=== PATIENT | male | born 1985 | race Two or more races ===

== ENCOUNTER → 2019-08-01 | Emergency (ER) | payer MEDICAID ==
[~2019-08-01] VITALS: Ht 160 cm; Wt 72.6 kg
[~2019-08-01] MED LIST: LORazepam 2MG/ML-1ML VIAL IV ONE; SODIUM CHLORIDE 0.9% 1,000 ML IV ONE
[2019-08-01 22:00] LABS: Basophils # (auto) 0 uL; Basophils % (auto) 0.5 % (0.0-2.0); Eosinophils # (auto) 0 uL; Eosinophils % (auto) 0.3 % (0.0-7.0); Hematocrit 41.6 % (41.0-53.0); Hemoglobin 14.2 g/dL (13.5-17.5); Lymphocytes # (auto) 0.8 uL; Lymphocytes % (auto) 8.3 % (10.0-50.0); Mean Corpuscular Hemoglobin 28.2 pg (28.0-32.0); Monocytes # (auto) 0.4 uL; Monocytes % (auto) 4.2 % (0.0-12.0); Neutrophils # (auto) 7.9 uL; Neutrophils % (auto) 86.7 % (37.0-80.0); Nucleated Red Blood Cells % 0.1 %; Platelet Count (auto) 325 10^3/uL (140-450); Red Blood Cells 5.02 10^6/uL (4.5-5.90); Red Cell Distribution Width 14.6 % (11.8-14.3); White Blood Cell 9.2 10^3/uL (4.4-10.8)
[2019-08-01 22:19] LABS: Salicylate < 1.7 mg/dL (2.8-20.0)
[2019-08-01 22:20] LABS: Albumin 4.2 g/dL (3.4-5.0); Anion Gap 9 (5-15); Blood Alcohol < 3.0 mg/dL (0-5); Blood Urea Nitrogen 5 mg/dL (7-18); Calcium 8.2 mg/dL (8.5-10.1); Carbon Dioxide 25 mmol/L (21-32); Chloride 104 mmol/L (98-107); Glucose 104 mg/dL (74-106); Magnesium 2.1 mg/dL (1.6-2.6); Potassium 3.5 mmol/L (3.5-5.1); Sodium 138 mmol/L (136-145)
[2019-08-01 22:21] LABS: Urine Bacteria FEW /hpf (None Seen); Urine Blood Negative /uL (Negative); Urine Specific Gravity 1.005 (1.001-1.035); Urine Sperm PRESENT /hpf (None Seen); Urine WBC 2 /hpf (0 - 3)
[2019-08-01 22:22] LABS: Acetaminophen < 2.0 ug/mL (10-30)
[2019-08-01 22:24] LABS: Alcohol, Urine < 3.0 mg/dL (0-5); Amphetamine Screen, Urine NEGATIVE (NEGATIVE); Barbiturate Scree,Urine NEGATIVE (NEGATIVE); Benzodiazephine Screen, Urine NEGATIVE (NEGATIVE); Cannabinoid Screen, Urine NEGATIVE (NEGATIVE); Cocaine Screen, Urine NEGATIVE (NEGATIVE); Opiate Scree,Urine NEGATIVE (NEGATIVE); Phencyclidine Screen, Urine NEGATIVE (NEGATIVE)
[2019-08-01 22:27] LABS: Alanine Aminotransferase 32 U/L (16-61); Alkaline Phosphatase 139 U/L (45-117); Aspartate Aminotransferase 16 U/L (15-37); BUN/Creatinine Ratio 5.1; Bilirubin, Total 0.3 mg/dL (0.2-1.0); GFR African American 112 mL/min; GFR Non-African American 93 mL/min; Total Protein 8.1 g/dL (6.4-8.2)
[2019-08-01 23:56] VITALS: BP 154/94
== END | disposition home or self-care (01) ==
LOC: ER 21:17
DX: T50.901A Poisoning by unspecified drugs, medicaments and biological substances, accidental (unintentional), initial encounter (principal); F41.9 Anxiety disorder, unspecified; I10 Essential (primary) hypertension; Y92.89 Other specified places as the place of occurrence of the external cause
CPT/HCPCS: 36415; 71045; 80053; 80307; 80320; 80329; 81001; 83735; 84484; 85025; 93005; 96374; 99285; J2060; J7030

== ENCOUNTER 2021-11-10 22:38 | Emergency (ER) | payer MEDICAID ==
[~2021-11-10] VITALS: Ht 160 cm; Wt 72.6 kg
[2021-11-10 22:38] VITALS: BP 148/87
== END 2021-11-11 02:20 | disposition left against medical advice (07) ==
LOC: ER 22:38
DX: S61.214A Laceration without foreign body of right ring finger without damage to nail, initial encounter (principal); Z53.21 Procedure and treatment not carried out due to patient leaving prior to being seen by health care provider; X58.XXXA Exposure to other specified factors, initial encounter; Y93.89 Activity, other specified; Y92.89 Other specified places as the place of occurrence of the external cause; Y99.8 Other external cause status

== ENCOUNTER 2022-04-02 14:52 | Emergency (ER) | payer MEDICAID ==
[~2022-04-02] VITALS: Ht 160 cm; Wt 73.4 kg
[2022-04-02 15:47] LABS: Urine Bacteria NONE SEEN /hpf (None Seen); Urine Blood Negative /uL (Negative); Urine Specific Gravity 1.016 (1.001-1.035); Urine WBC 1 /hpf (0 - 3)
[2022-04-02] MEDS ORDERED: DOXY-332 PO (19:53)
[2022-04-02] MEDS ORDERED: ACE3T PO (19:53)
[2022-04-02 20:10] VITALS: BP 130/91
== END 2022-04-02 20:16 | disposition home or self-care (01) ==
LOC: ER 14:52
DX: N41.9 Inflammatory disease of prostate, unspecified (principal); I10 Essential (primary) hypertension; Z79.899 Other long term (current) drug therapy; Z79.2 Long term (current) use of antibiotics
CPT/HCPCS: 76870; 81001

== ENCOUNTER 2022-08-22 12:52 | Emergency (ER) | payer MEDICAID ==
[~2022-08-22] VITALS: Ht 160 cm; Wt 68.1 kg
[~2022-08-22 12:52] MED LIST changes: +ACE3T PO; +ACET1CAP14 PO; +AZITTAB PO; +BENZ1LOZ3 MT; +DOXY-332 PO; -LORazepam 2MG/ML-1ML VIAL IV ONE; -SODIUM CHLORIDE 0.9% 1,000 ML IV ONE
[2022-08-22 13:42] VITALS: BP 154/93
[2022-08-22] MEDS ORDERED: cefTRIAXone SOD 1,000 MG VL IM ONE (14:00)
[2022-08-22] MEDS ORDERED: LIDO2SOL23 MT (14:02)
== END 2022-08-22 14:18 | disposition home or self-care (01) ==
LOC: ER 12:52
DX: J02.9 Acute pharyngitis, unspecified (principal); I10 Essential (primary) hypertension; Z88.6 Allergy status to analgesic agent; Z88.1 Allergy status to other antibiotic agents
CPT/HCPCS: 96372; 99283; J0696

== ENCOUNTER 2023-04-30 18:11 | Emergency (ER) | payer MEDICAID ==
[~2023-04-30 18:11] MED LIST changes: +BENZ1LOZ12 MT; -BENZ1LOZ3 MT; -DOXY-332 PO; +DOXY-448 PO; +LIDO2SOL26 MT
== END 2023-04-30 18:33 | disposition left against medical advice (07) ==
LOC: ER 18:11
DX: N48.89 Other specified disorders of penis (principal); Z53.21 Procedure and treatment not carried out due to patient leaving prior to being seen by health care provider

== ENCOUNTER 2024-10-14 19:40 | Emergency (ER) | payer MEDICAID ==
[~2024-10-14] VITALS: Ht 160 cm; Wt 67.4 kg
[~2024-10-14 19:40] MED LIST changes: -BENZ1LOZ12 MT; +BENZ1LOZ3 MT; -DOXY-448 PO; +DOXY100C79 PO
--- NOTE | 2024-10-14 19:55 | ED.PDOC ---
SOB-HPI HPI Comments 39 year old male presents to the ED with a chief complaint of shortness of breath onset 2 weeks. Patient states he has been experiencing intermittent shortness of breath for the past 2 weeks as well as chest tightness. Patient rates chest discomfort 3/10 and states he is also experiencing ear ringing, blood after blowing his nose. PMHx bipolar disorder, anxiety, HTN. Denies fever, chills, abdominal pain, nausea, vomiting, diarrhea, headache, dizziness. No other symptoms or modifying factors present at this time. Time Seen by MD: 20:05 Primary Care Provider: MERCEDEZ Reviewed notes: Medications, Allergies Information Source: Patient Mode of Arrival: Ambulatory Severity: Moderate Timing: Weeks Duration: Intermittent Context: At Rest PE Risk Factors: None History of: Anxiety Prehospital treatment: None Modifying Factors: Nothing Associated Signs and Symptoms: Chest Pain, Anxiety Quality: Tightness Radiation: No Radiation Location: Chest (L) Vital Signs Vital Signs Date Time Temp Pulse Resp B/P (MAP) Pulse Ox O2 Delivery O2 Flow Rate FiO2 10/14/24 21:53 99.4 111 12 151/97 (115) 98 99.4 10/14/24 21:53 Room Air* 0 21 Physical Exam General: Awake, alert and oriented. No acute distress. Skin: Skin in warm, dry and intact. Appropriate color for ethnicity. HEENT: The head is normocephalic and atraumatic. Conjunctivae are clear without exudates or hemorrhage. Sclera is non-icteric. EOM are intact. No signs of nystagmus. Eyelids are normal in appearance without swelling or lesions. Oral mucosa is pink and moist. No posterior pharyngeal erythema Neck: The neck is supple with normal range of motion. No JVD. Cardiac: Heart rate and rhythm are normal. No murmurs, gallops, or rubs are auscultated. Respiratory: No signs of respiratory distress. Lung sounds are clear in all lobes bilaterally without rales, rhonchi, or wheezes. Abdominal: Abdomen is soft, non-tender without distention. Bowel sounds are present and normoactive in all four quadrants. Extremities: Upper and lower extremities are atraumatic in appearance without deformity or edema. Neurological: The patient is awake, alert and oriented to person, place, and time with normal speech. Speech is clear. There is no facial asymmetry. Psychiatric: Appropriate mood and affect. Good judgement and insight. Review of Systems: REVIEW OF SYSTEMS: No fever, no chills, or fatigue HEENT: No sore throat, no earache, no congestion, no neck pain. Positive nasal congestion, positive rhinorrhea Cardiac: Positive chest pain. No palpitations. Lungs: Positive shortness of breath, positive cough. GI: No nausea, no vomiting, no diarrhea, no constipation, no abdominal pain : No dysuria, frequency, or urgency. No hematuria. Musculoskeletal: No joint pain , no joint swelling, no extremity edema. Skin: No rash, no itching. Neuro: No headache, no dizziness, no weakness Past Medical History PAST MEDICAL HISTORY: Anxiety, HTN Past Medical History (Other): bipolar disorder Surgical History: Denies all surgeries Family History Family History: Reviewed,noncontributory to illness Social History Smoker: Non-Smoker Alcohol: Denies ETOH Use Drugs: Denies Drug Use Lives In: Home EKG EKG : Pulse Rate (adult): 128 Cardiac Rhythm: ST Comments No STEMI Was a procedure done? Was a procedure done?: No Differential Dx Differential Diagnosis: Anxiety, Asthma, Bronchitis, CHF, COPD, Hypertension, Hyperventilation, Hyponatremia, Myocardial infarction, Pneumonia, Pneumothorax, Pulmonary Embolism, Respiratory Distress, Sinusitis, Otitis Media, Peritonsillar Abscess, Peritonsillar Cellulitis, Pharyngitis, URI X-Ray, Labs, Meds, VS Vital Signs Date Time Temp Pulse Resp B/P (MAP) Pulse Ox O2 Delivery O2 Flow Rate FiO2 10/14/24 21:53 99.4 111 12 151/97 (115) 98 99.4 10/14/24 21:53 Room Air* 0 21 10/14/24 20:24 128 10/14/24 20:11 128 10/14/24 20:04 98.5 115 18 127/89 (102) 98 98.5 Lab Test 10/14/24 22:08 10/14/24 21:32 10/14/24 20:29 Range/Units Influenza Type A Antigen Negative Negative Influenza Type B Antigen Negative Negative SARS-CoV-2 Antigen (Rapid) Negative NEGATIVE Troponin I High Sensitivity 7 6 </=54 ng/L White Blood Count 7.6 4.4-10.8 10^3/uL Red Blood Count 4.99 4.5-5.90 10^6/uL Hemoglobin 14.9 13.5-17.5 g/dL Hematocrit 41.9 41.0-53.0 % Mean Corpuscular Volume 83.9 80.0-100.0 fL Mean Corpuscular Hemoglobin 29.7 28.0-32.0 pg Mean Corpuscular Hemoglobin Concent 35.5 32.0-36.0 g/dL Red Cell Distribution Width 12.2 11.8-14.3 % Platelet Count 235 140-450 10^3/uL Mean Platelet Volume 6.8 L 6.9-10.8 fL Neutrophils (%) (Auto) 73.0 37.0-80.0 % Lymphocytes (%) (Auto) 18.7 10.0-50.0 % Monocytes (%) (Auto) 7.3 0.0-12.0 % Eosinophils (%) (Auto) 0.3 0.0-7.0 % Basophils (%) (Auto) 0.7 0.0-2.0 % Neutrophils # (Auto) 5.6 1.6-8.6 10 ^3/uL Lymphocytes # (Auto) 1.4 0.4-5.4 10 ^3/uL Monocytes # (Auto) 0.6 0-1.3 10 ^3/uL Eosinophils # (Auto) 0 0-0.8 10 ^3/uL Basophils # (Auto) 0 0-0.2 10 ^3/uL Nucleated Red Blood Cells 0.4 % D-Dimer, Quantitative < 0.19 0.0-0.49 mg/L FEU Sodium Level 135 L 136-145 mmol/L Potassium Level 3.6 3.5-5.1 mmol/L Chloride Level 98 98-107 mmol/L Carbon Dioxide Level 22 20-31 mmol/L Anion Gap 15 5-15 Blood Urea Nitrogen 9 9-23 mg/dL Creatinine 0.83 0.700-1.30 mg/dL Glomerular Filtration Rate Calc 114 >90 mL/min BUN/Creatinine Ratio 10.8 10.0-20.0 Serum Glucose 92 74-106 mg/dL Calcium Level 9.5 8.7-10.4 mg/dL Total Bilirubin 0.7 0.2-1.0 mg/dL Aspartate Amino Transferase (AST) 25 13-40 U/L Alanine Aminotransferase (ALT) 45 H 7-40 U/L Alkaline Phosphatase 137 H 46-116 U/L B-Type Natriuretic Peptide 7.72 0-100 pg/mL Total Protein 8.2 5.7-8.2 g/dL Albumin 5.4 H 3.2-4.8 g/dL IMPRESSION: 1. No acute cardiopulmonary disease. ATED BY: JENNIE RICKETTS MD DICTATED DATE/TIME: 10/14/242157 SIGNED BY: JENNIE RICKETTS MD SIGNED DATE/TIME: 10/14/242157 CC: Images Reviewed?: Images reviewed and evaluated by me (Independent interpretation of chest x-ray: No acute disease) Time of 1ST Reevaluation: 20:35 Reevaluation 1ST: Unchanged Patient Education/Counseling: Need For Follow Up Family Education/Counseling: No Family Present Departure 1 Departure Time of Disposition: 23:37 Impression: Primary Impression: Chest tightness Disposition: 01 HOME / SELF CARE / HOMELESS Condition: Other Additional Instructions: ED DISCHARGE INSTRUCTIONS Instructions: Please read all instructions provided in this packet carefully. Although you have been discharged from the Emergency Department, this does not mean that you have a "clean bill of health". No definitive diagnosis for your symptoms has been made today. It is possible that you are in the process of developing a serious illness. This is why you must return to the ED without fail if any new or worsening symptoms (especially if your symptoms include chest pain , trouble breathing, abdominal pain, fever, headache, confusion, trouble seeing, or trouble walking) It is also very important that you see a primary care doctor within the next 3-5 days to follow up. If you are unable to get an appointment, return to the ED for re-evaluation. CHEST PAIN EDUCATION There are many things that can cause chest pain. Some are not serious and will get better on their own in a few days. But some kinds of chest pain need more testing and treatment. Your doctor may have recommended a follow-up visit in the next few days. If you are not getting better, you may need more tests or treatment. Even though your doctor has released you, you still need to watch for any problems. The doctor carefully checked you, but sometimes problems can develop later. If you have new symptoms or if your symptoms do not get better, get medical care right away. If you have worse or different chest pain or pressure that lasts more than 5 minutes or you passed out (lost consciousness), call 911 or seek other emergency help right away. A medical visit is only one step in your treatment. Even if you feel better, you still need to do what your doctor recommends, such as going to all suggested follow-up appointments and taking medicines exactly as directed. This will help you recover and help prevent future problems. How can you care for yourself at home? Rest until you feel better. Take your medicine exactly as prescribed. Call your doctor if you think you are having a problem with your medicine. Do not drive after taking a prescription pain medicine. When should you call for help? Call 911 if: You passed out (lost consciousness). You have severe difficulty breathing. You have symptoms of a heart attack. These may include: Chest pain or pressure, or a strange feeling in your chest. Sweating. Shortness of breath. Nausea or vomiting. Pain, pressure, or a strange feeling in your back, neck, jaw, or upper belly or in one or both shoulders or arms. Lightheadedness or sudden weakness. A fast or irregular heartbeat. After you call 911, the smokehouse operator may tell you to chew 1 adult-strength or 2 to 4 low-dose aspirin. Wait for an ambulance. Do not try to drive yourself. Call your doctor now or seek immediate medical care if: You have any trouble breathing. You have new or different chest pain. You are dizzy or lightheaded, or you feel like you may faint. Watch closely for changes in your health, and be sure to contact your doctor if you do not get better as expected. Current as of: January 08, 2024 Author: [employer] Staff? e-Prescriptions Albuterol Sulfate (VENTOLIN MDI) 90 Mcg Ih 90 MCG IN TIDPRN PRN for 5 Days, #1 INH Prov: LORNA RIVERA MD 10/14/24 Azithromycin (Zithromax Z-Jorge) 250 Mg Tab 250 MG PO DAILY for 5 Days, #6 TAB Prov: LORNA RIVERA MD 10/14/24 Comments 39-year-old male with chest tightness and shortness of breath. Your EKG negative for signs of ischemia. Serial High sensitivity troponin negative. CXR shows no acute process. Presentation not suggestive of acute coronary syndrome, pulmonary embolism or aortic dissection. Patient improved at time of discharge. No hypoxia, respiratory distress or dyspnea at discharge. Patient able to ambulate without difficulty. We will treat for bronchitis. Patient well-appearing, nontoxic. Advised prompt follow-up with PCP, return to the ED with any new, worsening or concerning symptoms. Extensive evaluation was performed in attempt to identify or rule out: (See differential diagnosis section) The following tests were ordered, and results were reviewed by me and discussed with patient: (See diagnostic results section) The following test were independently interpreted by me: EKG, chest x-ray I reviewed and agreed with the following test results read by other providers: Chest x-ray I reviewed the following notes from the pt's past medical encounters: Encounter August 2022 for acute pharyngitis Additional information was gathered from interviewing the following independent historians: N/A Discussion of management or test interpretation with external physician/other qualified health managed care nurse: N/A Decision regarding hospitalization or escalation of hospital level of care: Risks and benefits of admission for further treatment of patient's condition was considered however due to patient's stable condition patient will be discharged to follow up closely or return to care for worsening of condition or inability to follow up. Critical Care Note Critical Care Time?: No Stability Stability form required: No Heart Score Heart Score: Heart Score Response (Comments) Value History Slightly Suspicious 0 EKG Normal 0 Age <45 0 Risk Factors No known risk factors 0 Troponin Normal limit 0 Total 0 I personally scribed for LORNA RIVERA MD ([email or web address]) on 10/14/24 at 19:55. Eliza ctronically submitted by Alix Cisneros ([email or web address]). I personally scribed for LORNA RIVERA MD ([email or web address]) on 10/14/24 at 20:23. Electronically submitted by Alix Cisneros ([email or web address]). I personally scribed for LORNA RIVERA MD ([email or web address]) on 10/14/24 at 20:24. Electronically submitted by Alix Cisneros ([email or web address]). I personally scribed for LORNA RIVERA MD ([email or web address]) on 10/14/24 at 22:05. Electronically submitted by Alix Cisneros ([email or web address]). LORNA RIVERA MD October 14, 2024 19:55
[2024-10-14 20:39] LABS: Basophils # (auto) 0 10 ^3/uL (0-0.2); Basophils % (auto) 0.7 % (0.0-2.0); Eosinophils # (auto) 0 10 ^3/uL (0-0.8); Eosinophils % (auto) 0.3 % (0.0-7.0); Hematocrit 41.9 % (41.0-53.0); Hemoglobin 14.9 g/dL (13.5-17.5); Lymphocytes # (auto) 1.4 10 ^3/uL (0.4-5.4); Lymphocytes % (auto) 18.7 % (10.0-50.0); Mean Corpuscular Hemoglobin 29.7 pg (28.0-32.0); Mean Corpuscular Hgb Conc. 35.5 g/dL (32.0-36.0); Mean Corpuscular Volume 83.9 fL (80.0-100.0); Monocytes # (auto) 0.6 10 ^3/uL (0-1.3); Monocytes % (auto) 7.3 % (0.0-12.0); Neutrophils # (auto) 5.6 10 ^3/uL (1.6-8.6); Nucleated Red Blood Cells % 0.4 %; Platelet Count (auto) 235 10^3/uL (140-450); Red Blood Cells 4.99 10^6/uL (4.5-5.90); Red Cell Distribution Width 12.2 % (11.8-14.3); White Blood Cell 7.6 10^3/uL (4.4-10.8)
[2024-10-14 20:54] LABS: Anion Gap 15 (5-15); Aspartate Aminotransferase 25 U/L (13-40); BUN/Creatinine Ratio 10.8 (10.0-20.0); Bilirubin, Total 0.7 mg/dL (0.2-1.0); Blood Urea Nitrogen 9 mg/dL (9-23); Calcium 9.5 mg/dL (8.7-10.4); Carbon Dioxide 22 mmol/L (20-31); Chloride 98 mmol/L (98-107); Glucose 92 mg/dL (74-106); Potassium 3.6 mmol/L (3.5-5.1); Total Protein 8.2 g/dL (5.7-8.2)
[2024-10-14 20:55] LABS: Alanine Aminotransferase 45 U/L (7-40); Albumin 5.4 g/dL (3.2-4.8); Alkaline Phosphatase 137 U/L (46-116); Sodium 135 mmol/L (136-145)
--- NOTE | 2024-10-14 22:01 | DVH ---
CHEST RADIOGRAPH Indication: cp Technique: Single frontal view of the chest was obtained Comparison: None FINDINGS: Lines and Tubes: None Lungs: No focal consolidation. Pleura: No effusion. No pneumothorax. Cardiomediastinal contours: Unremarkable Bones: No acute osseous abnormality. IMPRESSION: 1. No acute cardiopulmonary disease.
[2024-10-14 23:08] LABS: Rapid Influenza A Negative (Negative); Rapid Influenza B Negative (Negative)
[2024-10-14 23:09] LABS: COVID19 ANTIGEN SOFIA FIA NEGATIVE (NEGATIVE)
[2024-10-14] MEDS ORDERED: AZITTAB PO (23:40)
[2024-10-14] MEDS ORDERED: ALBUAER3 IN (23:40)
[2024-10-15 00:10] VITALS: BP 141/95; PULSE 117; RESP 18; TEMP 98.2; O2SAT 98
[2024-10-15] MEDS: SODIUM CHLORIDE 0.9% 1,000 ML IV ONE (00:12)
--- NOTE | 2024-10-15 08:40 | ECG ---
[facility] Test Date: 2024-10-14 Test Time: 20:11:39 Pat Name: CECE MANZO Department: ER Room: Gender: M Cutter Grinder: LEANDRA : 1985 Requested By: LORNA RIVERA Order Number: [id number] Reading MD: Stanislav Pozo Measurements Intervals [place] Rate: 128 P: 53 AR: 108 QRS: 88 QRSD: 77 T: -31 QT: 287 QTc: 419 Interpretive Statements Sinus tachycardia Borderline T abnormalities, diffuse leads Electronically Signed On 10-15-2024 21:10:47 PDT by Stanislav Pozo Please click the below link to view image of tracing.
== END 2024-10-15 00:12 | disposition home or self-care (01) ==
LOC: ER 19:40
DX: R07.89 Other chest pain (principal); R06.02 Shortness of breath; I10 Essential (primary) hypertension; F41.9 Anxiety disorder, unspecified; F31.9 Bipolar disorder, unspecified; Z20.822 Contact with and (suspected) exposure to COVID-19
CPT/HCPCS: 36415; 71045; 80053; 83880; 84484; 85025; 85379; 87426; 87804; 93005

== ENCOUNTER 2025-04-17 17:12 | Inpatient (IN) | payer MEDICAID ==
[~2025-04-17] VITALS: Ht 160 cm; Wt 72.4 kg
[~2025-04-17 17:12] MED LIST changes: +ALBUAER3 IN
--- NOTE | 2025-04-17 18:28 | ED.PDOC ---
GI ASSESSMENT HPI Comments HPI: Past Medical History: Hypertension Surgical History: Denies Family History: Denies Personal and Social History: Alcohol abuse. Denies any drug use MANZO: N/V EPIG PAIN HEMATEMESIS., ETOH HPI: Poor Historian. 39-year-old male presents to emergency department for evaluation epigastric pain with the associated nausea and vomiting where he noticed some blood in his vomit. Onset yesterday. Patient is started to feel some chest burning sensation as well. Patient has been drinking alcohol binge drinking for the last three weeks. Denies any other acute symptoms. Patient only vomited twice today. REVIEW OF SYSTEMS: CONSTITUTIONAL: Denies acute: fever, diaphoresis, chills, generalized weakness. HEAD: Denies acute: headache, photophobia Eyes: Denies acute: Double vision, vision loss, eye pain, eye discharge. EARS: Denies acute: tinnitus, hearing loss, ear discharge, ear pain, THROAT: Denies acute: sore throat, swelling, difficulty swallowing , pain with swallowing, change in voice. NECK: Denies acute: neck pain, neck swelling, stiff neck. HEART: Denies acute : palpitations, LUNGS: Denies acute: SOB, wheezing, cough, hemoptysis ABDOMEN: Denies acute: diarrhea, melena , , hematochezia SKIN: Denies acute: rash, redness, lesions, itchiness. EXTREMITIES: Denies acute: calf pain, numbness, tingling, weakness, denies pain in extremity. Denies acute: Low back pain. Neuro: Denies acute: focal neurological deficit, motor or sensory focal neurological deficit, tremors, seizure like activity, confusion, dizziness, change in mental status, loss of bowel or bladder function, cauda equina like symptoms. : Denies acute: dysuria, hematuria, flank pain, increase in urinary frequency. PSYCH: Denies acute: hallucination, suicidal ideation, homicidal ideation. PHYSICAL EXAM: General: -----mild---acute distress, awake and alert. Head: normocephalic, atraumatic. No raccoon's eyes, no decker sign. Neck: supple, trachea is midline, no swelling. Throat: Normal phonation. Eyes:, no erythema, no purulent discharge, no proptosis, no icterus. Heart: regular rate, regular rhythm, no significant murmur appreciated. Lungs: no apparent respiratory distress, Able to speak in full sentences. No wheezing, no rhonchi, no crackles. No stridors Clear to auscultation bilaterally. Abdomen: Epigastric tender to palpation, non distended, soft, no guarding, no rebound, + bowel sounds. Neuro: Awake, Alert, oriented to name, self, situation, follows commands GCS=15. Speech is normal. Skin: no petechia, no purpura, no cyanosis, non-pale, not jaundice. Lower extremities: --no - Pitting edema no deformity, no focal swelling, no calf TTP. Makes eye contact. moves all four extremities. Face: no apparent facial droop. Ambulating in the ED independently. ED COURSE: DISCLAIMER: This medical document was created using an electronic medical record system with voice recognition software and computerized dictation system. Although this document has been carefully reviewed, there might still be some phonetic and typographical errors. Occasional wrong-word or "sound-alike" substitutions may have occurred due to the inherent limitations of voice recognition software. These areas are purely typographical due to imperfections of the software progr ams and do not reflect any compromise in the patient's medical care. Please read the chart carefully and recognize, using context, where these substitutions have occurred. Chief Complaint: GI Bleed Time Seen by MD: 18:47 Primary Care Provider: MERCEDEZ Reviewed Notes: Nurses Notes, Allergies Allergies: Coded Allergies: NO KNOWN ALLERGIES (Unverified , 08/01/19) Home Meds Active Scripts Hydrocodone-Acetaminophen (Hydrocodone Bitartrate/AC 5-325 mg) 1 Tab Tab, 1 TAB PO Q4HP PRN for 7 Days, #35 TAB Prov:BARRY MAXWELL MD 04/22/25 Sucralfate (Carafate) 1 Gm/10 Ml Deepa, 10 ML PO BID for 30 Days, #600 ML 0 R efills Prov:MCKAY LEGGETT 04/22/25 Pantoprazole Sodium Sesquihydr (Protonix) 40 Mg Tab, 40 MG PO QAM for 30 Days, #30 TAB 2 Refills Prov:MCKAY LEGGETT 04/22/25 Albuterol Sulfate (VENTOLIN MDI) 90 Mcg Ih, 90 MCG IN TIDPRN PRN for 5 Days, #1 INH Prov:LORNA RIVERA MD 10/14/24 Azithromycin (Zithromax Z-Jorge) 250 Mg Tab, 250 MG PO DAILY for 5 Days, #6 TAB Prov:LORNA RIVERA MD 10/14/24 Lidocaine HCl (Mouth-Throat) (Lidocaine HCl Viscous) 2 % Leatha, 10 ML MT TID, #100 ML Prov:LENORA MAR 08/22/22 Acetaminophen (Tylenol) 325 Mg Cap, 325 MG PO Q4HPRN PRN, #30 CAP 0 Refills Take 1-2 caps po q4h prn for pain Prov:JULES GARZA [facility] 08/19/22 Benzocaine-Menthol (Mouth-Thro (Cepacol Sore Throat Extra 15-3.6 mg) 1 Devon Devon, 1 DEVON MT Q2HPRN PRN, #16 DEVON 0 Refills Prov:JULES GARZA [facility] 08/19/22 Azithromycin (Zithromax Z-Jorge) 250 Mg Tab, 250 MG PO DAILY for 5 Days, #6 TAB 0 Refills Z-Jorge as directed Prov:JULES GARZA [facility] 08/19/22 Acetaminophen W/ Codeine (Tylenol W/Cod #3) 1 Tab Tb, 1 TAB PO QIDP, #10 TAB 0 Refills Prov:JOCELYN HOWARD 04/02/22 Doxycycline (Monohydrate) (Doxycycline) 100 Mg Cap, 100 MG PO BID for 14 Days, #28 CAP 0 Refills Prov:JOCELYN HOWARD 04/02/22 Reported Medications Quetiapine Fumerate (QUETIAPINE FUMARATE) 300 Mg Tab, 300 MG PO HS, TAB 04/18/25 Pantoprazole Sodium (PANTOPRAZOLE SODIUM) 40 Mg Inj, 40 MG PO DAILY, INJ 04/18/25 Gabapentin (Gabapentin) 300 Mg Cap, 300 MG PO TID for 30 Days, MG 04/18/25 Enalapril Maleate (Enalapril Maleate) 2.5 Mg Tab, 2.5 MG PO DAILY for 30 Days, MG 04/18/25 Clonidine Hydrochloride (Clonidine Hcl) 0.1 Mg Tab, 0.1 MG PO TID for 30 Days, MG 04/18/25 Amlodipine Besylate (Amlodipine Besylate) 5 Mg Tab, 5 MG PO DAILY for 30 Days, MG 04/18/25 Information Source: Patient Mode of Arrival: Ambulatory Past Medical History PAST MEDICAL HISTORY: Anxiety, HTN Surgical History: Denies all surgeries Family History Family History: Reviewed,noncontributory to illness Social History Smoker: Non-Smoker Alcohol: Heavy Drugs: Denies Drug Use Lives In: Home Was a procedure done? Was a procedure done?: No GI differential Dx Differential Diagnosis: Other (DDX include but not limited to diverticulitis, colitis, gastroenteritis, acute abdomen, SBO, enteritis, constipation, volvulus, appendicitis, Gallbladder disease, choledocolithiasis, ascending cholangitis, pancreatitis, intraAbdominal mass/neoplasm, hepatitis, UTI, pylonephritis, kidney stone, aneurysm, dissection, Inflammatory bowel disease, gastroparesis, ischemic bowel.Food poisoning, bacterial/parasitic/viral etiology, trauma, diabetes DKA,) X-Ray, Labs, Meds, VS Vital Signs Date Time Temp Pulse Resp B/P (MAP) Pulse Ox O2 Delivery O2 Flow Rate FiO2 04/17/25 23:02 98.0 97 20 151/93 (112) 98 98.0 04/17/25 21:29 110 04/17/25 20:19 129 18 98 Room Air 04/17/25 20:19 98.9 129 18 163/99 (120) 98 98.9 04/17/25 17:20 98.3 131 18 158/94 99 98.3 04/17/25 17:17 110 Lab Test 04/18/25 01:52 04/17/25 18:17 04/17/25 12:20 Range/Units White Blood Count 7.2 6.8 4.4-10.8 10^3/uL Red Blood Count 4.97 4.97 4.5-5.90 10^6/uL Hemoglobin 15.3 15.3 13.5-17.5 g/dL Hematocrit 43.6 43.4 41.0-53.0 % Mean Corpuscular Volume 87.8 87.2 80.0-100.0 fL Mean Corpuscular Hemoglobin 30.8 30.8 28.0-32.0 pg Mean Corpuscular Hemoglobin Concent 35.0 35.3 32.0-36.0 g/dL Red Cell Distribution Width 13.7 13.6 11.8-14.3 % Platelet Count 263 280 140-450 10^3/uL Mean Platelet Volume 7.3 7.1 6.9-10.8 fL Neutrophils (%) (Auto) 76.5 76.4 37.0-80.0 % Lymphocytes (%) (Auto) 14.4 15.3 10.0-50.0 % Monocytes (%) (Auto) 8.5 7.6 0.0-12.0 % Eosinophils (%) (Auto) 0.1 0.3 0.0-7.0 % Basophils (%) (Auto) 0.5 0.4 0.0-2.0 % Neutrophils # (Auto) 5.5 5.2 1.6-8.6 10 ^3/uL Lymphocytes # (Auto) 1.0 1.0 0.4-5.4 10 ^3/uL Monocytes # (Auto) 0.6 0.5 0-1.3 10 ^3/uL Eosinophils # (Auto) 0 0 0-0.8 10 ^3/uL Basophils # (Auto) 0 0 0-0.2 10 ^3/uL Nucleated Red Blood Cells 0.1 0.0 % Sodium Level 143 # 138 136-145 mmol/L Potassium Level 3.9 3.8 3.5-5.1 mmol/L Chloride Level 107 104 98-107 mmol/L Carbon Dioxide Level 22 22 20-31 mmol/L Anion Gap 14 12 5-15 Blood Urea Nitrogen < 5 L < 5 L 9-23 mg/dL Creatinine 0.98 0.92 0.700-1.30 mg/dL Glomerular Filtration Rate Calc 101 109 >90 mL/min BUN/Creatinine Ratio 5.1 L 5.4 L 10.0-20.0 Serum Glucose 118 H 112 H 74-106 mg/dL Calcium Level 9.7 10.0 8.7-10.4 mg/dL Total Bilirubin 0.7 0.5 0.2-1.0 mg/dL Aspartate Amino Transferase (AST) 51 H 59 H 13-40 U/L Alanine Aminotransferase (ALT) 54 H 58 H 7-40 U/L Alkaline Phosphatase 141 H 146 H 46-116 U/L Total Protein 8.7 H 8.6 H 5.7-8.2 g/dL Albumin 5.2 H 5.4 H 3.2-4.8 g/dL Lactic Acid Level 1.9 0.4-2.0 mmol/L Troponin I High Sensitivity 6 </=54 ng/L Lipase 59 H 12-53 U/L Urine Color Light-yellow Yellow Urine Clarity Clear Clear Urine pH 6.0 5.0-9.0 Urine Specific [place] 1.010 1.001-1.035 Urine Protein Trace H Negative Urine Ketones 1+ H Negative Urine Blood Negative Negative /uL Urine Nitrite Negative Negative Urine Bilirubin Negative Negative Urine Urobilinogen Normal Negative mg/dL Urine Leukocyte Esterase Negative Negative /uL Urine RBC 3 0 - 3 /hpf Urine Microscopic WBC 5 H 0-3 /HPF Urine Squamous Epithelial Cells Few <5 /hpf Urine Bacteria Few H None Seen /hpf Urine Mucus Few None Seen Urine Sperm Present None Seen /hpf Urine Glucose Normal Normal mg/dL [place] [id number] Ph: [phone] DIAGNOSTIC IMAGING Diagnostic Imaging Report : [id number] Signed PATIENT: CECE MANZO ACCT: [id number] UNIT: [id number] : 1985 LOC: ER ROOM / BED: / AGE / SEX: 39 / M ADM STATUS: REG ER SERVICE 1828 ORDERING PHYSICIAN: STEPHANIE REECE DO PROCEDURE(s): ABPL - CT AB PEL WO CON-NO ORAL OR IV REASON: n/v epig pain ORDER NUMBER(s): [id number], ACCESSION NUMBER(s): [id number] Exam: CT CT AB PEL WO CON-NO ORAL OR IV History: n/v epig pain Comparison Study: None Technique: Multidetector spiral CT of the abdomen was performed from lung bases to pubic symphysis. Imaging was performed without IV contrast. Axial, coronal and sagittal multiplanar reformats were obtained from the axial data set by the technologist. Radiation Dose : 1. Abdomen/Pelvis: CTDIvol 9.92 mGy, DLP 529.59 mGy*cm. Findings: Evaluation of solid organs is limited due to lack of intravenous contrast use. Lung Bases: No acute or significant lung base finding. Normal heart size. No pleural or pericardial effusion. Liver: The liver is normal in size. No focal lesions. Gallbladder and Biliary Tree: Unremarkable Spleen: Unremarkable Pancreas: The pancreas is grossly normal in appearance. Adrenal Glands: Unremarkable Kidneys: Kidneys are grossly normal without calculi or hydronephrosis. Bladder: Grossly unremarkable for degree of distention. Bowel: The stomach is grossly normal in appearance. Small bowel and colon are normal in caliber and distribution. The appendix is not visualized; however, no secondary findings of acute appendicitis identified. Ascites: Absent Lymphadenopathy: No mesenteric, retroperitoneal or periportal lymphadenopathy. Abdominal Wall and Mesentery: Unremarkable. Vasculature: The visualized abdominal aorta is normal in size and caliber. Evaluation of abdominal and pelvic vessels is limited due to lack of intravenous contrast. Pelvic Organs: Unremarkable Musculoskeletal: No aggressive focal bony lesions, acute fractures or dislocation. IMPRESSION: No acute abdominal or pelvic findings. Radiation optimization: All CT scans at this facility use at least one of these dose optimization techniques: automated exposure control mA and/or kV adjustment per patient size (includes targeted exams where dose is matched to clinical indication) or iterative reconstruction. ATED BY: KHURRAM BAUTISTA MD DICTATED DATE/TIME: 04/17/251954 SIGNED BY: KHURRAM BAUTISTA MD SIGNED DATE/TIME: 04/17/251954 CC: Time of 1ST Reevaluation: 18:47 Reevaluation 1ST: Unchanged Patient Education/Counseling: Diagnosis, Treatment Family Education/Counseling: No Family Present Comments MDM: patient presented with the above HPI.---GI symptoms---workup was initiated. patient was found with the above mentioned diagnosis. the following medications were ordered: please refer to order lists of meds and tests obtained by myself Dr. Reece. Patient ED course and VS have been stabilized. Patient has been reassessed in the ED and remained in a stable condition. Pertinent incidental findings were discussed with the patient and/or family. Patient/family voices understanding and is agreeable with plan. Patient has been observed in the ED adequate length of time to insure improvement/stability. Escalation of care considered: Consideration of escalation to observation or admission Patient was ADMITTED to the medicine team for further evaluation and treatment of their presentation. All the reports of any imaging studies that were ordered by myself were reviewed by myself. SEPSIS Sepsis Screen Date sepsis recognized/suspect: Apr 17, 2025 Time Sepsis recognized/suspect: 1724 Recent Procedure: No On Antibiotic Therapy: No Respiratory Rate >20: No Heart Rate >90: No Temp<36 C (96.8 F) or >38.3 C: No SBP <90 or MAP <65 mmHG: No New Acute Mental Status Change: No Is the patient on CPAP, BIPAP,: No Physician Orders [employer] Programmer (04/17/25 ) Ct Ab Pel Wo Con-No Oral Or Iv (04/17/25 18:28) Code Status (04/18/25 00:05) Oxygen Per Hour (04/18/25 00:05) Vital Signs Date Time Temp Pulse Resp B/P (MAP) Pulse Ox O2 Delivery O2 Flow Rate FiO2 04/17/25 23:02 98.0 97 20 151/93 (112) 98 98.0 04/17/25 21:29 110 04/17/25 20:19 129 18 98 Room Air 04/17/25 20:19 98.9 129 18 163/99 (120) 98 98.9 04/17/25 17:20 98.3 131 18 158/94 99 98.3 04/17/25 17:17 110 Laboratory Tests Test 04/17/25 18:17 04/18/25 01:52 Lactic Acid Level 1.9 mmol/L (0.4-2.0) White Blood Count 6.8 10^3/uL (4.4-10.8) 7.2 10^3/uL (4.4-10.8) Departure 1 Departure Time of Disposition: 21:14 Impression: Primary Impression: Alcoholic gastritis Additional Impressions: Hematemesis Epigastric pain Nausea and vomiting UTI (urinary tract infection) Disposition: ADMITTED INPATIENT Admit to: Tele Condition: Guarded e-Prescriptions Hydrocodone-Acetaminophen (Hydrocodone Bitartrate/AC 5-325 mg) 1 Tab Tab 1 TAB PO Q4HP PRN for 7 Days, #35 TAB Prov: BARRY MAXWELL MD 04/22/25 Sucralfate (Carafate) 1 Gm/10 Ml Deepa 10 ML PO BID for 30 Days, #600 ML 0 Refills Prov: MCKAY LEGGETT RESIDENT 04/22/25 Pantoprazole Sodium Sesquihydr (Protonix) 40 Mg Tab 40 MG PO QAM for 30 Days, #30 TAB 2 Refills Prov: MCKAY LEGGETT RESIDENT 04/22/25 Discharged With: Self Critical Care Note Critical Care Time?: No I personally scribed for STEPHANIE REECE DO ([email or web address]) on 04/17/25 at 18:28. Electronically submitted by Haroon Samaniego ([facility] I personally scribed for STEPHANIE REECE DO ([email or web address]) on 04/17/25 at 18:45. Electronically submitted by Haroon Samaniego ([email or web address]). I personally scribed for STEPHANIE REECE DO ([email or web address]) on 04/17/25 at 18:50. Electronically submitted by Haroon Samaniego ([facility]). I personally scribed for STEPHANIE REECE DO ([email or web address]) on 04/17/25 at 20:40. Electronically submitted by Haroon Samaniego ([facility]). STEPHANIE REECE DO Apr 17, 2025 18:28
[2025-04-17 18:51] LABS: Hematocrit 43.4 % (41.0-53.0); Hemoglobin 15.3 g/dL (13.5-17.5); Mean Corpuscular Hemoglobin 30.8 pg (28.0-32.0); Mean Corpuscular Volume 87.2 fL (80.0-100.0); Nucleated Red Blood Cells % 0.0 %
[2025-04-17 18:58] LABS: Anion Gap 12 (5-15); Calcium 10.0 mg/dL (8.7-10.4); Carbon Dioxide 22 mmol/L (20-31); Chloride 104 mmol/L (98-107); Potassium 3.8 mmol/L (3.5-5.1); Sodium 138 mmol/L (136-145)
[2025-04-17 18:59] LABS: Bilirubin, Total 0.5 mg/dL (0.2-1.0)
[2025-04-17 19:18] LABS: Alanine Aminotransferase 58 U/L (7-40); Albumin 5.4 g/dL (3.2-4.8); Alkaline Phosphatase 146 U/L (46-116); BUN/Creatinine Ratio 5.4 (10.0-20.0); Blood Urea Nitrogen < 5 mg/dL (9-23); Glucose 112 mg/dL (74-106); Lipase 59 U/L (12-53); Total Protein 8.6 g/dL (5.7-8.2)
--- NOTE | 2025-04-17 19:57 | DVH ---
Exam: CT CT AB PEL WO CON-NO ORAL OR IV History: n/v epig pain Comparison Study: None Technique: Multidetector spiral CT of the abdomen was performed from lung bases to pubic symphysis. Imaging was performed without IV contrast. Axial, coronal and sagittal multiplanar reformats were obtained from the axial data set by the technologist. Radiation Dose : 1. Abdomen/Pelvis: CTDIvol 9.92 mGy, DLP 529.59 mGy*cm. Findings: Evaluation of solid organs is limited due to lack of intravenous contrast use. Lung Bases: No acute or significant lung base finding. Normal heart size. No pleural or pericardial effusion. Liver: The liver is normal in size. No focal lesions. Gallbladder and Biliary Tree: Unremarkable Spleen: Unremarkable Pancreas: The pancreas is grossly normal in appearance. Adrenal Glands: Unremarkable Kidneys: Kidneys are grossly normal without calculi or hydronephrosis. Bladder: Grossly unremarkable for degree of distention. Bowel: The stomach is grossly normal in appearance. Small bowel and colon are normal in caliber and distribution. The appendix is not visualized; however, no secondary findings of acute appendicitis identified. Ascites: Absent Lymphadenopathy: No mesenteric, retroperitoneal or periportal lymphadenopathy. Abdominal Wall and Mesentery: Unremarkable. Vasculature: The visualized abdominal aorta is normal in size and caliber. Evaluation of abdominal and pelvic vessels is limited due to lack of intravenous contrast. Pelvic Organs: Unremarkable Musculoskeletal: No aggressive focal bony lesions, acute fractures or dislocation. IMPRESSION: No acute abdominal or pelvic findings. Radiation optimization: All CT scans at this facility use at least one of these dose optimization techniques: automated exposure control mA and/or kV adjustment per patient size (includes targeted exams where dose is matched to clinical indication) or iterative reconstruction.
[2025-04-17] MEDS: SODIUM CHLORIDE 0.9% 1,000 ML IV ONE (20:18)
[2025-04-17] MEDS: SUCRALFATE 1 GM TAB PO ONE (20:19)
[2025-04-17] MEDS: LIDOCAINE VISCOUS 2% 15ML UD PO ONE (20:19)
[2025-04-17] MEDS: PANTOPRAZOLE 40 MG/10 ML VIAL INJ IV ONE (20:21)
[2025-04-17] MEDS: ONDANSETRON HCL 4 MG/2 ML VIAL IV ONE (20:21)
[2025-04-18] VITALS (7 sets, daily range): BP systolic 130–146; BP diastolic 74–90; PULSE 74–106; RESP 18–21; TEMP 98.2–99; O2SAT 96–100
[2025-04-18] MEDS ORDERED: IBUPROFEN 600 MG TAB PO PRN (00:15)
[2025-04-18] MEDS ORDERED: DOCUSATE SOD 100 MG CAP PO PRN (00:15)
[2025-04-18 02:19] LABS: Hematocrit 43.6 % (41.0-53.0); Hemoglobin 15.3 g/dL (13.5-17.5); Mean Corpuscular Hemoglobin 30.8 pg (28.0-32.0); Mean Corpuscular Volume 87.8 fL (80.0-100.0); Nucleated Red Blood Cells % 0.1 %
[2025-04-18 02:30] LABS: Anion Gap 14 (5-15); Calcium 9.7 mg/dL (8.7-10.4); Carbon Dioxide 22 mmol/L (20-31); Chloride 107 mmol/L (98-107); Potassium 3.9 mmol/L (3.5-5.1); Sodium 143 mmol/L (136-145)
[2025-04-18 02:31] LABS: Alanine Aminotransferase 54 U/L (7-40); Albumin 5.2 g/dL (3.2-4.8); Alkaline Phosphatase 141 U/L (46-116); BUN/Creatinine Ratio 5.1 (10.0-20.0); Bilirubin, Total 0.7 mg/dL (0.2-1.0); Blood Urea Nitrogen < 5 mg/dL (9-23); Glucose 118 mg/dL (74-106); Total Protein 8.7 g/dL (5.7-8.2)
--- NOTE | 2025-04-18 02:38 | DVHHP2 ---
History of Present Illness Reason for Visit: GI bleed History of Present Illness The patient is a 39-year-old male with past medical history of EtOH abuse, anxiety, and hypertension who presented to [facility] ED with complaint of epigastric abdominal pain. Patient reports he has been experiencing abdominal pain associated with chest pressure, intractable nausea, vomiting blood, generalized weakness, getting worse today that prompted this visit. Patient states that he has been drinking alcohol binge drinking for the last 3 weeks. He states having endoscopy on April 20, 2024 at [facility] Patient was seen and evaluated in the ED, laboratory data shows WBC 6.8, platelets 280, sodium 138, potassium 3.8, BUN five, creatinine 0.92, GFR 109, glucose 112, calcium 10.0, lipase 59, AST 59, ALT 58, alkaline phos 146, troponin 6, total bilirubin 0.5, abdomen/pelvis CT showed no acute abdominal or pelvic findings. Please see medication orders section in the computer. On my assessment, patient denied chest pain, no headache, dizziness, diaphoresis, no abdominal pain, nausea or vomiting at this moment, diarrhea, fever, no chills. Patient was admitted for further evaluation and medical management. Past Medical History Anxiety, HTN, EtOH abuse. Past Surgical History Denies all surgeries Family History Reviewed, noncontributory to the management of this case. Past Social History Patient lives at home, drinks alcohol heavily, denies smoking or illicit drugs abuse. Review of Systems Constitutional: Yes: Weakness; No: Fever, Chills, Sweats, Malaise, Other Eyes: No: Pain, Vision change, Conjunctivae inflammation, Eyelid inflammation, Other, Redness ENT: No: Ear pain, Ear discharge, Nose pain, Nose discharge, Nose congestion, Mouth pain, Mouth swelling, Throat pain, Throat swelling, Other Respiratory: No: Cough, Dry, Shortness of breath, SOB with excertion, Wheezing, Hemoptysis, Pleuritic Pain, Sputum, Wheezing, Other Cardiovascular: No: Chest Pain, Palpitations, Orthopnea, Paroxysmal Noc. Dyspnea, Edema, Lt Headedness, Other Gastrointestinal: Nausea, Vomiting, Abdominal Pain, Other (Hematemesis); No: Diarrhea, Constipation, Melena, Hematochezia Genitourinary: No Dysuria, No Frequency, No Incontinence, No Hematuria, No Retention, No Other Musculoskeletal: No: other, neck pain, shoulder pain, arm pain, back pain, hand pain, leg pain, foot pain Skin: No: Rash, Lesions, Jaundice, Bruising, Other Neurological: No: Weakness, Numbness, Incoordination, Change in speech, Confusion, Seizures, Other Allergies: Coded Allergies: NO KNOWN ALLERGIES (Unverified , 08/01/19) Medications Current Medications Medications Dose Ordered Sig/Shona Route Start Time Stop Time Status Last Admin Dose Admin Pantoprazole Sodium 40 mg DAILY IV 04/18/25 10:00 Metoprolol Tartrate 25 mg BID PO 04/18/25 10:00 Clonidine HCl 0.1 mg Q4HP PRN PO 04/18/25 00:15 Ibuprofen 600 mg Q6HP PRN PO 04/18/25 00:15 Sodium Chloride 1,000 ml @ 60 mls/hr [id number] IV 04/18/25 00:15 Acetaminophen/ Hydrocodone Bitart 1 tab Q4HP PRN PO 04/18/25 00:15 Ondansetron HCl 4 mg Q4HP PRN IV 04/18/25 00:15 Docusate Sodium 100 mg BIDPRN PRN PO 04/18/25 00:15 Exam Vital Signs Vital Signs Date Time Temp Pulse Resp B/P (MAP) Pulse Ox O2 Delivery O2 Flow Rate FiO2 04/17/25 23:02 98.0 97 20 151/93 (112) 98 98.0 04/17/25 20:19 Room Air General Appearance: Alert, Oriented X3, Cooperative, No acute distress HEENT: Atraumatic, PERRLA, EOMI, Mucous membr. moist/pink Respiratory: Normal air movement Cardiovascular: Regular rate, Normal S1, Normal S2, No murmurs Abdominal: Normal bowel sounds, Soft, No hepatospenomegaly, No masses, Other (Reports tenderness) Extremities: No clubbing, No cyanosis, No edema, Normal pulses, No tenderness/swelling Skin: No rashes, No significant lesion Neuro: Normal speech, Normal tone, Sensation intact, Cranial nerves 3-12 NL, Reflexes 2+, Other (Generalized weakness) Psych/Mental Status: Mental status NL, Mood NL Labs/Xrays Labs Test 04/18/25 01:52 04/17/25 18:17 Range/Units White Blood Count 7.2 4.4-10.8 10^3/uL Red Blood Count 4.97 4.5-5.90 10^6/uL Hemoglobin 15.3 13.5-17.5 g/dL Hematocrit 43.6 41.0-53.0 % Mean Corpuscular Volume 87.8 80.0-100.0 fL Mean Corpuscular Hemoglobin 30.8 28.0-32.0 pg Mean Corpuscular Hemoglobin Concent 35.0 32.0-36.0 g/dL Red Cell Distribution Width 13.7 11.8-14.3 % Platelet Count 263 140-450 10^3/uL Mean Platelet Volume 7.3 6.9-10.8 fL Neutrophils (%) (Auto) 76.5 37.0-80.0 % Lymphocytes (%) (Auto) 14.4 10.0-50.0 % Monocytes (%) (Auto) 8.5 0.0-12.0 % Eosinophils (%) (Auto) 0.1 0.0-7.0 % Basophils (%) (Auto) 0.5 0.0-2.0 % Neutrophils # (Auto) 5.5 1.6-8.6 10 ^3/uL Lymphocytes # (Auto) 1.0 0.4-5.4 10 ^3/uL Monocytes # (Auto) 0.6 0-1.3 10 ^3/uL Eosinophils # (Auto) 0 0-0.8 10 ^3/uL Basophils # (Auto) 0 0-0.2 10 ^3/uL Nucleated Red Blood Cells 0.1 % Sodium Level 143 # 136-145 mmol/L Potassium Level 3.9 3.5-5.1 mmol/L Chloride Level 107 98-107 mmol/L Carbon Dioxide Level 22 20-31 mmol/L Anion Gap 14 5-15 Blood Urea Nitrogen < 5 L 9-23 mg/dL Creatinine 0.98 0.700-1.30 mg/dL Glomerular Filtration Rate Calc 101 >90 mL/min BUN/Creatinine Ratio 5.1 L 10.0-20.0 Serum Glucose 118 H 74-106 mg/dL Calcium Level 9.7 8.7-10.4 mg/dL Total Bilirubin 0.7 0.2-1.0 mg/dL Aspartate Amino Transferase (AST) 51 H 13-40 U/L Alanine Aminotransferase (ALT) 54 H 7-40 U/L Alkaline Phosphatase 141 H 46-116 U/L Total Protein 8.7 H 5.7-8.2 g/dL Albumin 5.2 H 3.2-4.8 g/dL Lactic Acid Level 1.9 0.4-2.0 mmol/L Troponin I High Sensitivity 6 </=54 ng/L Lipase 59 H 12-53 U/L PATIENT: CECE MANZO ACCT: [id number] UNIT: [id number] : 1985 LOC: ER ROOM / BED: / AGE / SEX: 39 / M ADM STATUS: REG ER SERVICE 1828 ORDERING PHYSICIAN: STEPHANIE REECE DO PROCEDURE(s): ABPL - CT AB PEL WO CON-NO ORAL OR IV REASON: n/v epig pain ORDER NUMBER(s): [id number], ACCESSION NUMBER(s): [id number] Exam: CT CT AB PEL WO CON-NO ORAL OR IV History: n/v epig pain Comparison Study: None Technique: Multidetector spiral CT of the abdomen was performed from lung bases to pubic symphysis. Imaging was performed without IV contrast. Axial, coronal and sagittal multiplanar reformats were obtained from the axial data set by the technologist. Radiation Dose: 1. Abdomen/Pelvis: CTDIvol 9.92 mGy, DLP 529.59 mGy*cm. Findings: Evaluation of solid organs is limited due to lack of intravenous contrast use. Lung Bases: No acute or significant lung base finding. Normal heart size. No pleural or pericardial effusion. Liver: The liver is normal in size. No focal lesions. Gallbladder and Biliary Tree: Unremarkable Spleen: Unremarkable Pancreas: The pancreas is grossly normal in appearance. Adrenal Glands: Unremarkable Kidneys: Kidneys are grossly normal without calculi or hydronephrosis. Bladder: Grossly unremarkable for degree of distention. Bowel: The stomach is grossly normal in appearance. Small bowel and colon are normal in caliber and distribution. The appendix is not visualized; however, no secondary findings of acute appendicitis identified. Ascites: Absent Lymphadenopathy: No mesenteric, retroperitoneal or periportal lymphadenopathy. Abdominal Wall and Mesentery: Unremarkable. Vasculature: The visualized abdominal aorta is normal in size and caliber. Evaluation of abdominal and pelvic vessels is limited due to lack of intravenous contrast. Pelvic Organs: Unremarkable Musculoskeletal: No aggressive focal bony lesions, acute fractures or dislocation. IMPRESSION: No acute abdominal or pelvic findings. SEPSIS Sepsis Screen Date sepsis recognized/suspect: Apr 17, 2025 Time Sepsis recognized/suspect: 2302 Recent Procedure: No On Antibiotic Therapy: No Respiratory Rate >20: No Heart Rate >90: Yes Temp<36 C (96.8 F) or >38.3 C: No SBP <90 or MAP <65 mmHG: No New Acute Mental Status Change: No Is the patient on CPAP, BIPAP,: No Physician Orders Pantoprazole (Protonix) (04/18/25 10:00) Metoprolol Tartrate Tablet (Lopressor Ta (04/18/25 10:00) Clonidine Hcl Tablet (Catapres Tablet) (04/18/25 00:15) Ibuprofen Tablet (Motrin Tablet) (04/18/25 00:15) Allergies (04/18/25 00:05) Code Status (04/18/25 00:05) Sodium Chloride 0.9% (04/18/25 00:15) Oxygen Per Hour (04/18/25 00:05) Hydrocodone-Acet 5/325mg Tab ([place] 5/32 (04/18/25 00:15) Ondansetron Hcl (Zofran) (04/18/25 00:15) Docusate Sodium Capsule (Colace Capsule) (04/18/25 00:15) Complete Blood Count (04/19/25 04:00) Comprehensive Metabolic Panel (04/19/25 04:00) Condition: Serious (04/18/25 00:05) Clear Liq Diet (04/18/25 Breakfast) Bedrest With Bathroom Privileg (04/18/25 00:05) Maintain Bed Rest (04/18/25 00:05) Sequential Compression Device (04/18/25 ) Admit (04/18/25 02:36) Nitroglycerin Sublingual (Ntrostat Subli (04/18/25 02:45) Morphine Sulfate Injection (04/18/25 02:45) Stat Ekg For Chest Pain (04/18/25 02:36) Notify Md Of Changes From Base (04/18/25 02:36) Server Service Assistant For 24 Hours (04/18/25 02:36) Emergency Dysrhythmia Protocol (04/18/25 02:36) Rhythm Strips Once Every Shift (04/18/25 02:36) Oxygen By Nasal Cannula (04/18/25 02:36) * Gi Dvh Spindraw Operator (04/18/25 02:36) Vital Signs Date Time Temp Pulse Resp B/P (MAP) Pulse Ox O2 Delivery O2 Flow Rate FiO2 04/17/25 23:02 98.0 97 20 151/93 (112) 98 98.0 04/17/25 21:29 110 04/17/25 20:19 129 18 98 Room Air 04/17/25 20:19 98.9 129 18 163/99 (120) 98 98.9 Laboratory Tests Test 04/17/25 18:17 04/18/25 01:52 Lactic Acid Level 1.9 mmol/L (0.4-2.0) White Blood Count 6.8 10^3/uL (4.4-10.8) 7.2 10^3/uL (4.4-10.8) Medications Medications Dose Ordered Sig/Shona Route Start Time Stop Time Status Last Admin Dose Admin Lidocaine HCl 10 ml ONCE ONCE PO 04/17/25 18:30 04/17/25 18:31 DC 04/17/25 20:19 10 ML Ondansetron HCl 8 mg ONCE ONCE IV 04/17/25 18:30 04/17/25 18:31 DC 04/17/25 20:21 8 MG Pantoprazole Sodium 40 mg ONCE ONCE IV 04/17/25 18:30 04/17/25 18:31 DC 04/17/25 20:21 40 MG Sodium Chloride 1,000 ml @ 1,000 mls/hr Q1H ONCE IV 04/17/25 18:30 04/17/25 19:29 DC 04/17/25 20:18 1,000 MLS/HR Sucralfate 1 gm ONCE ONCE PO 04/17/25 18:30 04/17/25 18:31 DC 04/17/25 20:19 1 GM Assessment/Plan Assessment/Plan GI bleed Alcoholic gastritis Hematemesis Elevated liver enzymes Epigastric pain Intractable nausea and vomiting Plan 1. Admit to telemetry unit 2. Breathing treatment 3. Pain control management 4. Management of fluids and electrolytes 5. Consultation for GI/hospitalist 6. Diagnostic tests abdomen/pelvis CT 7. DVT prophylaxis on SCDs 8. Repeat labs CBC, CMP in a.m. 9. Continue with current medical management 10. Treatment plan discussed with patient and RN. Patient verbalized understanding. Plan discussed with: Patient, Other (RN) My Orders Orders - ROSHNI BRANTLEY DNP Procedure Category Date Status Time Pantoprazole PHA 04/18/25 In Process (Protonix) 10:00 Metoprolol Tartrate PHA 04/18/25 In Process Tablet (Lopressor Ta 10:00 Clonidine Hcl Tablet PHA 04/18/25 In Process (Catapres Tablet) 00:15 Ibuprofen Tablet PHA 04/18/25 In Process (Motrin Tablet) 00:15 Allergies CHARLES 04/18/25 In Process 00:05 Code Status CODE 04/18/25 Transmitted 00:05 Sodium Chloride 0.9% PHA 04/18/25 In Process 00:15 Oxygen Per Hour RT 04/18/25 Transmitted 00:05 Hydrocodone-Acet PHA 04/18/25 In Process 5/325mg Tab ([place] 00:15 Ondansetron Hcl PHA 04/18/25 In Process (Zofran) 00:15 Docusate Sodium PHA 04/18/25 In Process Capsule (Colace 00:15 Complete Blood Count LAB 04/19/25 Verified 04:00 Comprehensive LAB 04/19/25 Verified Metabolic Panel 04:00 Condition: Serious CHARLES 04/18/25 In Process 00:05 Clear Liq Diet DIET 04/18/25 Transmitted Breakfast Bedrest With Bathroom [facility] 04/18/25 In Process Privileg 00:05 Maintain Bed Rest [facility] 04/18/25 In Process 00:05 Sequential CHARLES 04/18/25 In Process Compression Device Admit ADMIT 04/18/25 Transmitted 02:36 Nitroglycerin [facility] 04/18/25 Transmitted Sublingual (Ntrostat 02:45 Morphine Sulfate PHA 04/18/25 Transmitted Injection 02:45 Stat Ekg For Chest [facility] 04/18/25 Transmitted Pain 02:36 Notify Of Changes [facility] 04/18/25 Transmitted From Base 02:36 Server Service Assistant For [facility] 04/18/25 Transmitted 24 Hours 02:36 Emergency Dysrhythmia [facility] 04/18/25 Transmitted Protocol 02:36 Rhythm Strips Once [facility] 04/18/25 Transmitted Every Shift 02:36 Oxygen By Nasal RT 04/18/25 Transmitted Cannula 02:36 * Gi Dvh Spindraw Operator CONS 04/18/25 Transmitted 02:36 Problem List: (1) GI bleed (2) Alcoholic gastritis (3) Hematemesis (4) Elevated liver enzymes (5) Epigastric pain (6) Intractable nausea and vomiting Date of Service: Apr 18, 2025 Billing Provider: ROSHNI BRANTLEY DNP Common Visit Codes: [id number] INP/OBS CARE (HIGH) ROSHNI BRANTLEY DNP Apr 18, 2025 02:38
[2025-04-18] MEDS ORDERED: NITROGLYCERIN 0.4 MG SL TAB SL PRN (02:45)
[2025-04-18] MEDS ORDERED: MORPHINE SULFATE INJ 2 MG/ml SYRG IV PRN (02:45)
[2025-04-18] MEDS: SODIUM CHLORIDE 0.9% 1,000 ML IV SCH (05:35)
[2025-04-18] MEDS: HYDROcodone-ACET 5/325MG TAB PO PRN (05:37)
[2025-04-18] MEDS: ONDANSETRON HCL 4 MG/2 ML VIAL IV PRN (05:40)
[2025-04-18] MEDS: PANTOPRAZOLE 40 MG/10 ML VIAL INJ IV SCH (08:09)
[2025-04-18] MEDS: METOPROLOL TARTRATE 25 MG TAB PO SCH (08:09)
[2025-04-18] MEDS: LORazepam 2MG/ML-1ML VIAL IV PRN (08:52)
[2025-04-18] MEDS ORDERED: CLON0.1T PO (09:25)
[2025-04-18] MEDS ORDERED: AMLO1TAB22 PO (09:25)
[2025-04-18] MEDS ORDERED: GABA-1250 PO (09:26)
[2025-04-18] MEDS ORDERED: ENAL1TAB42 PO (09:26)
[2025-04-18] MEDS ORDERED: PANT1INJ3 PO (09:27)
[2025-04-18] MEDS ORDERED: QUET300T24 PO (09:28)
--- NOTE | 2025-04-18 13:15 | DVHPN2 ---
Subjective I am assuming the care of the patient from today onwards. Patient has initially presented to the hospital with the abdominal pain epigastric pain associated with the nausea and vomiting as well as blood in vomiting. Patient does have chronic alcoholism history last drink yesterday. Patient has stated that he had eight beers yesterday. Changes from previous H/P or p: No Changes Eyes: No Pain, No Vision change, No Conjunctivae inflammation, No Eyelid inflammation, No Other, No Redness ENT: No Ear pain, No Ear discharge, No Nose pain, No Nose discharge, No Nose congestion, No Mouth pain, No Mouth swelling, No Throat pain, No Throat swelling, No Other Cardiovascular: No Chest Pain, No Palpitations, No Orthopnea, No Paroxysmal Noc. Dyspnea, No Edema, No Lt Headedness, No Other Respiratory: No Cough, No Dry, No Shortness of breath, No SOB with excertion, No Wheezing, No Hemoptysis, No Pleuritic Pain, No Sputum, No Other Gastrointestinal: Nausea, Vomiting, Abdominal Pain; No Diarrhea, No Constipation, No Melena, No Hematochezia; Other (Hematemesis) Genitourinary: No Dysuria, No Frequency, No Incontinence, No Hematuria, No Retention, No Other Musculoskeletal: No other, No neck pain, No shoulder pain, No arm pain, No back pain, No hand pain, No leg pain, No foot pain Skin: No Rash, No Lesions, No Jaundice, No Bruising, No Other Objective Vitals Vital Signs Date Time Temp Pulse Resp B/P (MAP) Pulse Ox O2 Delivery O2 Flow Rate FiO2 04/18/25 13:06 99.0 86 18 132/87 (102) 100 99.0 04/18/25 07:38 Room Air* 0 21 Intake/Output Intake and Output 04/18/25 07:00 Intake Total 1000 ml Balance 1000 ml Intake IV Total 1000 ml Exam HEENT pupils are reactive Neck is supple CV is S1-S2 regular rate and rhythm Respiratory diminished breath sounds bases GI positive bowel sounds soft nondistended mildly tender in the epigastric region no guarding no rigidity Extremities no edema [employer] no motor deficit Medications Current Medications Medications Dose Ordered Sig/Shona Route Start Time Stop Time Status Last Admin Dose Admin Pantoprazole Sodium 40 mg DAILY IV 04/18/25 10:00 04/18/25 08:09 40 MG Metoprolol Tartrate 25 mg BID PO 04/18/25 10:00 04/18/25 08:09 25 MG Clonidine HCl 0.1 mg Q4HP PRN PO 04/18/25 00:15 Ibuprofen 600 mg Q6HP PRN PO 04/18/25 00:15 Sodium Chloride 1,000 ml @ 60 mls/hr [id number] IV 04/18/25 00:15 04/18/25 05:35 60 MLS/HR Acetaminophen/ Hydrocodone Bitart 1 tab Q4HP PRN PO 04/18/25 00:15 04/18/25 10:23 1 TAB Ondansetron HCl 4 mg Q4HP PRN IV 04/18/25 00:15 04/18/25 10:01 4 MG Docusate Sodium 100 mg BIDPRN PRN PO 04/18/25 00:15 Nitroglycerin 0.4 mg Q5MINP PRN SL 04/18/25 02:45 Morphine Sulfate 2 mg Q30M PRN IV 04/18/25 02:45 Lorazepam 1 mg Q4H PRN IV 04/18/25 08:30 04/18/25 08:52 1 MG Laboratory Results Laboratory Tests 04/18/25 01:52 Chemistry Test 04/17/25 18:17 04/18/25 01:52 Albumin 5.4 g/dL (3.2-4.8) H 5.2 g/dL (3.2-4.8) H Calcium Level 10.0 mg/dL (8.7-10.4) 9.7 mg/dL (8.7-10.4) Total Protein 8.6 g/dL (5.7-8.2) H 8.7 g/dL (5.7-8.2) H Lipid panel Test 04/17/25 18:17 Lipase 59 U/L (12-53) H LFT Test 04/17/25 18:17 04/18/25 01:52 Alanine Aminotransferase (ALT) 58 U/L (7-40) H 54 U/L (7-40) H Alkaline Phosphatase 146 U/L (46-116) H 141 U/L (46-116) H Aspartate Amino Transferase (AST) 59 U/L (13-40) H 51 U/L (13-40) H Total Bilirubin 0.5 mg/dL (0.2-1.0) 0.7 mg/dL (0.2-1.0) Assessment/Plan Assessment/Plan 39-year-old male with a known history of anxiety disorder, chronic alcoholism who initially admitted to the hospital with the abdominal pain epigastric pain nausea and vomiting and hematemesis found to have 1. Nausea and vomiting with a hematemesis ruled out upper GI bleed 3. Alcoholic gastritis 3. Transaminitis 4. Chronic alcoholism 5. Anxiety disorder -Protonix IV, IV fluids, banana bag, watch for any alcohol withdrawal syndrome -GI consultation Plan discussed with: Patient Problem List: (1) Hematemesis (2) Alcoholic gastritis (3) Epigastric pain (4) GI bleed (5) Elevated liver enzymes Date of Service: Apr 18, 2025 Billing Provider: JANI LUX MD Common Visit Codes: [id number] INP/OBS CARE(HIGH) JANI LUX MD Apr 18, 2025 13:15
[2025-04-19] VITALS (8 sets, daily range): BP systolic 117–153; BP diastolic 51–87; PULSE 60–110; RESP 16–19; TEMP 97.8–99.2; O2SAT 98–99
[2025-04-19] MEDS ORDERED: MORPHINE SULFATE INJ 2 MG/ml SYRG IV PRN
[2025-04-19 07:58] LABS: Hematocrit 38.2 % (41.0-53.0); Hemoglobin 13.5 g/dL (13.5-17.5); Mean Corpuscular Hemoglobin 30.9 pg (28.0-32.0); Mean Corpuscular Volume 87.1 fL (80.0-100.0); Nucleated Red Blood Cells % 0.1 %
[2025-04-19 08:23] LABS: Albumin 4.4 g/dL (3.2-4.8); Alkaline Phosphatase 107 U/L (46-116); Calcium 9.0 mg/dL (8.7-10.4); Carbon Dioxide 23 mmol/L (20-31); Sodium 142 mmol/L (136-145); Total Protein 7.2 g/dL (5.7-8.2)
[2025-04-19 08:24] LABS: Bilirubin, Total 0.7 mg/dL (0.2-1.0)
[2025-04-19 08:25] LABS: Alanine Aminotransferase 46 U/L (7-40); BUN/Creatinine Ratio 5.1 (10.0-20.0); Blood Urea Nitrogen < 5 mg/dL (9-23); Glucose 113 mg/dL (74-106); Potassium 3.2 mmol/L (3.5-5.1)
[2025-04-19 08:56] LABS: Anion Gap 12 (5-15); Chloride 107 mmol/L (98-107)
[2025-04-19] MEDS ORDERED: MORPHINE SULFATE 4 MG/ML SYR/VIAL IV PRN (10:45)
[2025-04-19] MEDS: SUCRALFATE 1 GM/10 ML ORAL SUSP PO ONE (12:34)
[2025-04-19] MEDS: SODIUM CHLORIDE 0.9% 1,000 ML IV SCH (12:34)
[2025-04-19 12:59] LABS: Urine Protein, UAD TRACE (Negative)
--- NOTE | 2025-04-19 16:43 | DVHPN2 ---
Subjective Patient's seeing things, visual hallucination positive, currently on banana bag and Librium. Changes from previous H/P or p: No Changes Eyes: No Pain, No Vision change, No Conjunctivae inflammation, No Eyelid inflammation, No Other, No Redness ENT: No Ear pain, No Ear discharge, No Nose pain, No Nose discharge, No Nose congestion, No Mouth pain, No Mouth swelling, No Throat pain, No Throat swelling, No Other Cardiovascular: No Chest Pain, No Palpitations, No Orthopnea, No Paroxysmal Noc. Dyspnea, No Edema, No Lt Headedness, No Other Respiratory: No Cough, No Dry, No Shortness of breath, No SOB with excertion, No Wheezing, No Hemoptysis, No Pleuritic Pain, No Sputum, No Other Gastrointestinal: Nausea, Vomiting, Abdominal Pain; No Diarrhea, No Constipation, No Melena, No Hematochezia; Other (Hematemesis) Genitourinary: No Dysuria, No Frequency, No Incontinence, No Hematuria, No Retention, No Other Musculoskeletal: No other, No neck pain, No shoulder pain, No arm pain, No back pain, No hand pain, No leg pain, No foot pain Skin: No Rash, No Lesions, No Jaundice, No Bruising, No Other Objective Vitals Vital Signs Date Time Temp Pulse Resp B/P (MAP) Pulse Ox O2 Delivery O2 Flow Rate FiO2 04/19/25 11: 90 04/19/25 10:25 142/87 04/19/25 09:00 99.2 19 99 99.2 04/19/25 08:00 Room Air* 0 21 Intake/Output Intake and Output 04/19/25 07:00 Intake Total 2050 ml Balance 2050 ml Intake Oral 2050 ml # Voids 11 # Bowel Movements 9 Exam HEENT pupils are reactive Neck is supple CV is S1-S2 regular rate and rhythm Respiratory diminished breath sounds bases GI positive bowel sounds soft nondistended mildly tender in the epigastric region no guarding no rigidity Extremities no edema ELECT[employer]IEF no motor deficit Medications Current Medications Medications Dose Ordered Sig/Shona Route Start Time Stop Time Status Last Admin Dose Admin Pantoprazole Sodium 40 mg DAILY IV 04/18/25 10:00 04/19/25 08:38 40 MG Metoprolol Tartrate 25 mg BID PO 04/18/25 10:00 04/19/25 10:25 25 MG Clonidine HCl 0.1 mg Q4HP PRN PO 04/18/25 00:15 Ibuprofen 600 mg Q6HP PRN PO 04/18/25 00:15 Acetaminophen/ Hydrocodone Bitart 1 tab Q4HP PRN PO 04/18/25 00:15 04/19/25 09:49 1 TAB Ondansetron HCl 4 mg Q4HP PRN IV 04/18/25 00:15 04/19/25 09:49 4 MG Docusate Sodium 100 mg BIDPRN PRN PO 04/18/25 00:15 Nitroglycerin 0.4 mg Q5MINP PRN SL 04/18/25 02:45 Chlordiazepoxide HCl 25 mg Q6HPRN PRN PO 04/19/25 03:45 04/19/25 08:38 25 MG Hydromorphone HCl 0.5 mg Q6HPRN PRN IV 04/19/25 10:00 Morphine Sulfate 2 mg Q30MP PRN IV 04/19/25 10:45 Sodium Chloride 1,000 ml @ 100 mls/hr Q10H IV 04/19/25 11:45 04/19/25 12:34 100 MLS/HR Sucralfate 1 gm BID@0600,2200 PO 04/19/25 22:00 Folic Acid 1 mg/ Multivitamins 10 ml/Magnesium Sulfate 8 meq/ Thiamine HCl 100 mg/Dextrose 1,013.2 ml @ 125.001 mls/hr DAILY@1800 INJ 04/20/25 18:00 Lorazepam 1 mg Q2H PRN IV 04/19/25 15:00 Loperamide HCl 2 mg TIDPRN PRN PO 04/19/25 15:00 Laboratory Results Laboratory Tests 04/19/25 07:06 Chemistry Test 04/19/25 07:06 Albumin 4.4 g/dL (3.2-4.8) Calcium Level 9.0 mg/dL (8.7-10.4) Total Protein 7.2 g/dL (5.7-8.2) LFT Test 04/19/25 07:06 Alanine Aminotransferase (ALT) 46 U/L (7-40) H Alkaline Phosphatase 107 U/L (46-116) Aspartate Amino Transferase (AST) 42 U/L (13-40) H Total Bilirubin 0.7 mg/dL (0.2-1.0) Urinalysis Test 04/17/25 12:20 Urine Color Light-yellow (Yellow) Urine Clarity Clear (Clear) Urine pH 6.0 (5.0-9.0) Urine Specific [place] 1.010 (1.001-1.035) Urine Protein Trace (Negative) H Urine Ketones 1+ (Negative) H Urine Blood Negative /uL (Negative) Urine Nitrite Negative (Negative) Urine Bilirubin Negative (Negative) Urine Urobilinogen Normal mg/dL (Negative) Urine Leukocyte Esterase Negative /uL (Negative) Urine RBC 3 /hpf (0 - 3) Urine Microscopic WBC 5 /HPF (0-3) H Urine Squamous Epithelial Cells Few /hpf (<5) Urine Bacteria Few /hpf (None Seen) H Urine Mucus Few (None Seen) Urine Sperm Present /hpf (None Seen) Urine Glucose Normal mg/dL (Normal) Assessment/Plan Assessment/Plan 39-year-old male with a known history of anxiety disorder, chronic alcoholism who initially admitted to the hospital with the abdominal pain epigastric pain nausea and vomiting and hematemesis found to have 1. Nausea and vomiting with a hematemesis rule out upper GI bleed 3. Alcoholic gastritis 3. Transaminitis 4. Chronic alcoholism 5. Anxiety disorder 6. Alcohol withdrawal syndrome/delirium tremens -Protonix IV, IV fluids, banana bag, watch for any alcohol withdrawal syndrome , delirium tremens -GI consultation appreciated Plan discussed with: Patient My Orders Orders - JANI LUX MD Procedure Category Date Status Time Hydromorphone PHA 04/19/25 In Process Injection (Dilaudid 10:00 Morphine Sulfate PHA 04/19/25 In Process Injection 10:45 Electrocardigram EKG 04/19/25 Logged 10:31 Folic Acid... PHA 04/19/25 In Process 18:00 Folic Acid... PHA 04/20/25 In Process 18:00 Lorazepam 2mg/Ml Inj PHA 04/19/25 In Process (Ativan Inj) 15:00 Loperamide Capsule PHA 04/19/25 In Process (Imodium Capsule) 15:00 Date of Service: Apr 19, 2025 Billing Provider: JANI LUX MD Common Visit Codes: [id number] INP/OBS CARE(HIGH) JANI LUX MD Apr 19, 2025 16:43
[2025-04-19] MEDS: LORazepam 2MG/ML-1ML VIAL IV PRN (17:15)
[2025-04-19] MEDS: LOPERAMIDE HCL 2 MG CAP/TAB PO ONE (17:16)
--- NOTE | 2025-04-19 17:37 | DVHCONRES ---
Date Seen: Apr 19, 2025 Resident Creating Document: JHAJJ,SARPUNEET RESIDENT Referring Physician LEANDRA Palmer Reason for Consultation GI bleed History of Present Illness Patient is a 39-year-old male with a medical history of alcohol abuse, anxiety, hypertension presented to the ED with a chief complaint of multiple episodes of nausea and vomiting since yesterday and noticed some blood. Patient also felt a burning sensation in his chest and was not able to keep anything down following which she came to the hospital for further evaluation. Patient has a alcohol dependence and drinks about 8 beers every day. He had a similar episode about a year ago and underwent endoscopy which showed small hiatal hernia and gastritis that was at a different hospital. Past Medical History As per HPI Past Surgical History Denies Family History: Anxiety disorder G8 FATHER Hypertension G8 FATHER Family History Noncontributory Social History Heavy alcohol use, denies smoking and any other drug use Allergies: Coded Allergies: NO KNOWN ALLERGIES (Unverified , 08/01/19) Home Meds Active Scripts Albuterol Sulfate (VENTOLIN MDI) 90 Mcg Ih, 90 MCG IN TIDPRN PRN for 5 Days, #1 INH Prov:LORNA RIVERA MD 10/14/24 Azithromycin (Zithromax Z-Jorge) 250 Mg Tab, 250 MG PO DAILY for 5 Days, #6 TAB Prov:LORNA RIVERA MD 10/14/24 Lidocaine HCl (Mouth-Throat) (Lidocaine HCl Viscous) 2 % Leatha, 10 ML MT TID, #100 ML Prov:LENORA MAR 08/22/22 Acetaminophen (Tylenol) 325 Mg Cap, 325 MG PO Q4HPRN PRN, #30 CAP 0 Refills Take 1-2 caps po q4h prn for pain Prov:JULES GARZAP 08/19/22 Benzocaine-Menthol (Mouth-Thro (Cepacol Sore Throat Extra 15-3.6 mg) 1 Devon Devon, 1 DEVON MT Q2HPRN PRN, #16 DEVON 0 Refills Prov:JULES GARZA 08/19/22 Azithromycin (Zithromax Z-Jorge) 250 Mg Tab, 250 MG PO DAILY for 5 Days, #6 TAB 0 Refills Z-Jorge as directed Prov:JULES GARZA 08/19/22 Acetaminophen W/ Codeine (Tylenol W/Cod #3) 1 Tab Tb, 1 TAB PO QIDP, #10 TAB 0 Refills Prov:JOCELYN HOWARD 04/02/22 Doxycycline (Monohydrate) (Doxycycline) 100 Mg Cap, 100 MG PO BID for 14 Days, #28 CAP 0 Refills Prov:JOCELYN HOWARD 04/02/22 Reported Medications Quetiapine Fumerate (QUETIAPINE FUMARATE) 300 Mg Tab, 300 MG PO HS, TAB 04/18/25 Pantoprazole Sodium (PANTOPRAZOLE SODIUM) 40 Mg Inj, 40 MG PO DAILY, INJ 04/18/25 Gabapentin (Gabapentin) 300 Mg Cap, 300 MG PO TID for 30 Days, MG 04/18/25 Enalapril Maleate (Enalapril Maleate) 2.5 Mg Tab, 2.5 MG PO DAILY for 30 Days, MG 04/18/25 Clonidine Hydrochloride (Clonidine Hcl) 0.1 Mg Tab, 0.1 MG PO TID for 30 Days, MG 04/18/25 Amlodipine Besylate (Amlodipine Besylate) 5 Mg Tab, 5 MG PO DAILY for 30 Days, MG 04/18/25 Current Medications Current Medications Medications (Trade) Dose Ordered Sig/Shona Route PRN Reason Start Time Stop Time Status Last Admin Morphine Sulfate 1 mg Q4HP PRN IV SEVERE PAIN (7-10 PAIN SCALE) 04/19/25 00:00 04/19/25 10:27 DC Chlordiazepoxide HCl (Librium Capsule) 25 mg Q6HPRN PRN PO ALCOHOL WITHDRAWAL SYMPTOMS 04/19/25 03:45 04/19/25 17:16 Hydromorphone HCl (Dilaudid Injection) 0.5 mg Q6HPRN PRN IV SEVERE PAIN (7-10 PAIN SCALE) 04/19/25 10:00 Morphine Sulfate 2 mg Q30MP PRN IV FOR CHEST PAIN 04/19/25 10:45 Sodium Chloride 1,000 ml @ 100 mls/hr Q10H IV 04/19/25 11:45 04/19/25 12:34 Sucralfate (Carafate Susp) 1 gm BID@0600,2200 PO 04/19/25 22:00 Folic Acid 1 mg/ Multivitamins 10 ml/Magnesium Sulfate 8 meq/ Thiamine HCl 100 mg/Dextrose 1,013.2 ml @ 125.001 mls/hr DAILY@1800 INJ 04/20/25 18:00 Lorazepam (Ativan Inj) 1 mg Q2H PRN IV ALCOHOL WITHDRAWAL SYMPTOMS 04/19/25 15:00 04/19/25 17:15 Loperamide HCl (Imodium Capsule) 2 mg TIDPRN PRN PO FOR DIARRHEA 04/19/25 15:00 Review of Systems Patient seen and examined at bedside Has a anxiety, nausea and is not able to tolerate liquids well Patient seems to be a bit confused H&H is stable Vital Signs Vital Signs Date Time Temp Pulse Resp B/P (MAP) Pulse Ox O2 Delivery O2 Flow Rate FiO2 04/19/25 17:00 97.8 61 17 153/87 (109) 98 97.8 04/19/25 08:00 Room Air* 0 21 Physical Exam Gen - no pallor, no scleral icterus Skin - Patients skin is warm and dry. HEENT - normocephalic, atraumatic, dry mucous membranes. Neck - supple, no lymphadenopathy Pulmonary - B/L clear breath sounds cardiovascular - regular S1,S2 heard GI - soft abdomen with mild tenderness to palpation in the epigastrium. Bowel sounds normoactive. Neurological - Patient is alert and oriented x3. Anxiety, tremors on extension of arms, sweating Labs/Diagnostic Data Labs Test 04/19/25 07:06 04/17/25 18:17 04/17/25 12:20 Range/Units White Blood Count 6.7 4.4-10.8 10^3/uL Red Blood Count 4.38 L 4.5-5.90 10^6/uL Hemoglobin 13.5 13.5-17.5 g/dL Hematocrit 38.2 #L 41.0-53.0 % Mean Corpuscular Volume 87.1 80.0-100.0 fL Mean Corpuscular Hemoglobin 30.9 28.0-32.0 pg Mean Corpuscular Hemoglobin Concent 35.4 32.0-36.0 g/dL Red Cell Distribution Width 13.3 11.8-14.3 % Platelet Count 241 140-450 10^3/uL Mean Platelet Volume 7.3 6.9-10.8 fL Neutrophils (%) (Auto) 76.1 37.0-80.0 % Lymphocytes (%) (Auto) 14.3 10.0-50.0 % Monocytes (%) (Auto) 8.9 0.0-12.0 % Eosinophils (%) (Auto) 0.2 0.0-7.0 % Basophils (%) (Auto) 0.5 0.0-2.0 % Neutrophils # (Auto) 5.1 1.6-8.6 10 ^3/uL Lymphocytes # (Auto) 1.0 0.4-5.4 10 ^3/uL Monocytes # (Auto) 0.6 0-1.3 10 ^3/uL Eosinophils # (Auto) 0 0-0.8 10 ^3/uL Basophils # (Auto) 0 0-0.2 10 ^3/uL Nucleated Red Blood Cells 0.1 % Sodium Level 142 136-145 mmol/L Potassium Level 3.2 L 3.5-5.1 mmol/L Chloride Level 107 98-107 mmol/L Carbon Dioxide Level 23 20-31 mmol/L Anion Gap 12 5-15 Blood Urea Nitrogen < 5 L 9-23 mg/dL Creatinine 0.98 0.700-1.30 mg/dL Glomerular Filtration Rate Calc 101 >90 mL/min BUN/Creatinine Ratio 5.1 L 10.0-20.0 Serum Glucose 113 H 74-106 mg/dL Calcium Level 9.0 8.7-10.4 mg/dL Total Bilirubin 0.7 0.2-1.0 mg/dL Aspartate Amino Transferase (AST) 42 H 13-40 U/L Alanine Aminotransferase (ALT) 46 H 7-40 U/L Alkaline Phosphatase 107 46-116 U/L Troponin I High Sensitivity 5 </=54 ng/L Total Protein 7.2 5.7-8.2 g/dL Albumin 4.4 3.2-4.8 g/dL Lactic Acid Level 1.9 0.4-2.0 mmol/L Lipase 59 H 12-53 U/L Urine Color Light-yellow Yellow Urine Clarity Clear Clear Urine pH 6.0 5.0-9.0 Urine Specific [place] 1.010 1.001-1.035 Urine Protein Trace H Negative Urine Ketones 1+ H Negative Urine Blood Negative Negative /uL Urine Nitrite Negative Negative Urine Bilirubin Negative Negative Urine Urobilinogen Normal Negative mg/dL Urine Leukocyte Esterase Negative Negative /uL Urine RBC 3 0 - 3 /hpf Urine Microscopic WBC 5 H 0-3 /HPF Urine Squamous Epithelial Cells Few <5 /hpf Urine Bacteria Few H None Seen /hpf Urine Mucus Few None Seen Urine Sperm Present None Seen /hpf Urine Glucose Normal Normal mg/dL Assessment Alcohol withdrawal Acute gastritis likely due to alcohol Intractable nausea vomiting likely due to alcohol withdrawal Transaminitis likely due to alcohol Plan - IV Ativan for alcohol withdrawal - IV fluids - Protonix daily - Carafate b.i.d. - clear liquid diet - monitor H&H and keep hemoglobin above 7 - patient only had very small streaks of blood in sputum, likely from forceful vomiting, we will manage conservatively and no procedures indicated at this time Plan discussed with Dr. Anaya Plan discussed with: Patient, Other (ZEESHAN Amador) MCKAY LEGGETT RESIDENT Apr 19, 2025 17:37
[2025-04-19] MEDS: FOLIC ACID 1 MG, MULTIPLE VITAMIN 10 ML, MAGNESIUM SULF SDV 50% 8 MEQ, THIAMINE INJ 100... INJ ONE (18:07)
[2025-04-19] MEDS: LOPERAMIDE HCL 2 MG CAP/TAB PO PRN (21:47)
[2025-04-19] MEDS: SUCRALFATE 1 GM/10 ML ORAL SUSP PO SCH (21:48)
[2025-04-20] VITALS (8 sets, daily range): BP systolic 119–131; BP diastolic 74–86; PULSE 57–95; RESP 16–18; TEMP 97.8–98.7; O2SAT 98–100
[2025-04-20] MEDS: POTASSIUM CHL 20 Meq TABLET PO ONE (12:45)
[2025-04-20] MEDS: POTASSIUM CHLORIDE 20 MEQ, LIDOCAINE 1% (LOCAL ANESTH.) 2 ML in SODIUM CHL 0.9% 100 ML IV ONE (13:41)
--- NOTE | 2025-04-20 17:15 | DVHPN2 ---
Subjective Patient's seeing things, visual hallucination positive, currently on banana bag and Librium. Changes from previous H/P or p: No Changes Eyes: No Pain, No Vision change, No Conjunctivae inflammation, No Eyelid inflammation, No Other, No Redness ENT: No Ear pain, No Ear discharge, No Nose pain, No Nose discharge, No Nose congestion, No Mouth pain, No Mouth swelling, No Throat pain, No Throat swelling, No Other Cardiovascular: No Chest Pain, No Palpitations, No Orthopnea, No Paroxysmal Noc. Dyspnea, No Edema, No Lt Headedness, No Other Respiratory: No Cough, No Dry, No Shortness of breath, No SOB with excertion, No Wheezing, No Hemoptysis, No Pleuritic Pain, No Sputum, No Other Gastrointestinal: Nausea, Vomiting, Abdominal Pain; No Diarrhea, No Constipation, No Melena, No Hematochezia; Other (Hematemesis) Genitourinary: No Dysuria, No Frequency, No Incontinence, No Hematuria, No Retention, No Other Musculoskeletal: No other, No neck pain, No shoulder pain, No arm pain, No back pain, No hand pain, No leg pain, No foot pain Skin: No Rash, No Lesions, No Jaundice, No Bruising, No Other Objective Vitals Vital Signs Date Time Temp Pulse Resp B/P (MAP) Pulse Ox O2 Delivery O2 Flow Rate FiO2 04/20/25 17:09 98.7 59 18 131/86 (101) 99 98.7 04/20/25 07:50 Room Air* 0 21 Intake/Output Intake and Output 04/20/25 07:00 Intake Total 550 ml Output Total 1700 ml Balance -1150 ml Intake Oral 550 ml Output Urine Total 1700 ml Exam HEENT pupils are reactive Neck is supple CV is S1-S2 regular rate and rhythm Respiratory diminished breath sounds bases GI positive bowel sounds soft nondistended mildly tender in the epigastric region no guarding no rigidity Extremities no 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 Medications Current Medications Medications Dose Ordered Sig/Shona Route Start Time Stop Time Status Last Admin Dose Admin Pantoprazole Sodium 40 mg DAILY IV 04/18/25 10:00 04/20/25 08:40 40 MG Metoprolol Tartrate 25 mg BID PO 04/18/25 10:00 04/20/25 08:40 25 MG Clonidine HCl 0.1 mg Q4HP PRN PO 04/18/25 00:15 Ibuprofen 600 mg Q6HP PRN PO 04/18/25 00:15 Acetaminophen/ Hydrocodone Bitart 1 tab Q4HP PRN PO 04/18/25 00:15 04/19/25 09:49 1 TAB Ondansetron HCl 4 mg Q4HP PRN IV 04/18/25 00:15 04/19/25 09:49 4 MG Docusate Sodium 100 mg BIDPRN PRN PO 04/18/25 00:15 Nitroglycerin 0.4 mg Q5MINP PRN SL 04/18/25 02:45 Hydromorphone HCl 0.5 mg Q6HPRN PRN IV 04/19/25 10:00 Morphine Sulfate 2 mg Q30MP PRN IV 04/19/25 10:45 Sodium Chloride 1,000 ml @ 100 mls/hr Q10H IV 04/19/25 11:45 04/20/25 08:45 100 MLS/HR Sucralfate 1 gm BID@0600,2200 PO 04/19/25 22:00 04/20/25 06:26 1 GM Folic Acid 1 mg/ Multivitamins 10 ml/Magnesium Sulfate 8 meq/ Thiamine HCl 100 mg/Dextrose 1,013.2 ml @ 125.001 mls/hr DAILY@1800 INJ 04/20/25 18:00 Lorazepam 1 mg Q2H PRN IV 04/19/25 15:00 04/20/25 08:40 1 MG Loperamide HCl 2 mg TIDPRN PRN PO 04/19/25 15:00 04/20/25 06:31 2 MG Chlordiazepoxide HCl 50 mg Q6HPRN PRN PO 04/19/25 19:15 04/20/25 02:36 50 MG Laboratory Results Laboratory Tests 04/19/25 07:06 04/20/25 09:59 Urinalysis Test 04/17/25 12:20 Urine Color Light-yellow (Yellow) Urine Clarity Clear (Clear) Urine pH 6.0 (5.0-9.0) Urine Specific [place] 1.010 (1.001-1.035) Urine Protein Trace (Negative) H Urine Ketones 1+ (Negative) H Urine Blood Negative /uL (Negative) Urine Nitrite Negative (Negative) Urine Bilirubin Negative (Negative) Urine Urobilinogen Normal mg/dL (Negative) Urine Leukocyte Esterase Negative /uL (Negative) Urine RBC 3 /hpf (0 - 3) Urine Microscopic WBC 5 /HPF (0-3) H Urine Squamous Epithelial Cells Few /hpf (<5) Urine Bacteria Few /hpf (None Seen) H Urine Mucus Few (None Seen) Urine Sperm Present /hpf (None Seen) Urine Glucose Normal mg/dL (Normal) Assessment/Plan Assessment/Plan 39-year-old male with a known history of anxiety disorder, chronic alcoholism who initially admitted to the hospital with the abdominal pain epigastric pain nausea and vomiting and hematemesis found to have 1. Nausea and vomiting with a hematemesis rule out upper GI bleed 3. Alcoholic gastritis 3. Transaminitis 4. Chronic alcoholism 5. Anxiety disorder 6. Alcohol withdrawal syndrome/delirium tremens -Protonix IV, IV fluids, banana bag, watch for any alcohol withdrawal syndrome , delirium tremens -GI consultation appreciated, EGD in a.m.. Plan discussed with: Patient My Orders Orders - JANI LUX MD Procedure Category Date Status Time Chlordiazepoxide Hcl PHA 04/19/25 In Process Capsule (Librium Ca 19:15 Complete Blood Count LAB 04/21/25 Verified 04:00 Comprehensive LAB 04/21/25 Verified Metabolic Panel 04:00 Date of Service: Apr 20, 2025 Billing Provider: JANI LUX MD Common Visit Codes: [id number] INP/OBS CARE(HIGH) JANI LUX MD Apr 20, 2025 17:15
--- NOTE | 2025-04-20 17:23 | DVHPN2 ---
Progress Note Date Seen: Apr 20, 2025 Resident Creating Document: MCKAY LEGGETT RESIDENT Medical Necessity Reason Pt with a Central, PICC or Fol: No Subjective Review of Systems Patient tolerating clear liquid diet well, advanced to soft diet Continues to have intermittent acidity and reflux Advanced to soft diet, NPO after midnight for EGD tomorrow Objective vital signs Vital Sign Date Time Temp Pulse Resp B/P (MAP) Pulse Ox O2 Delivery O2 Flow Rate FiO2 04/20/25 17:09 98.7 59 18 131/86 (101) 99 98.7 04/20/25 07:50 Room Air* 0 21 Total Intake and Output 04/19/25 04/19/25 04/20/25 15:00 23:00 07:00 Intake Total 550 ml Output Total 1700 ml Balance -1150 ml medications Current Medications Medications Dose Ordered Sig/Shona Route Start Time Stop Time Status Last Admin Dose Admin Pantoprazole Sodium 40 mg DAILY IV 04/18/25 10:00 04/20/25 08:40 40 MG Metoprolol Tartrate 25 mg BID PO 04/18/25 10:00 04/20/25 08:40 25 MG Clonidine HCl 0.1 mg Q4HP PRN PO 04/18/25 00:15 Ibuprofen 600 mg Q6HP PRN PO 04/18/25 00:15 Acetaminophen/ Hydrocodone Bitart 1 tab Q4HP PRN PO 04/18/25 00:15 04/19/25 09:49 1 TAB Ondansetron HCl 4 mg Q4HP PRN IV 04/18/25 00:15 04/19/25 09:49 4 MG Docusate Sodium 100 mg BIDPRN PRN PO 04/18/25 00:15 Nitroglycerin 0.4 mg Q5MINP PRN SL 04/18/25 02:45 Hydromorphone HCl 0.5 mg Q6HPRN PRN IV 04/19/25 10:00 Morphine Sulfate 2 mg Q30MP PRN IV 04/19/25 10:45 Sodium Chloride 1,000 ml @ 100 mls/hr Q10H IV 04/19/25 11:45 04/20/25 08:45 100 MLS/HR Sucralfate 1 gm BID@0600,2200 PO 04/19/25 22:00 04/20/25 06:26 1 GM Folic Acid 1 mg/ Multivitamins 10 ml/Magnesium Sulfate 8 meq/ Thiamine HCl 100 mg/Dextrose 1,013.2 ml @ 125.001 mls/hr DAILY@1800 INJ 04/20/25 18:00 Lorazepam 1 mg Q2H PRN IV 04/19/25 15:00 04/20/25 08:40 1 MG Loperamide HCl 2 mg TIDPRN PRN PO 04/19/25 15:00 04/20/25 06:31 2 MG Chlordiazepoxide HCl 50 mg Q6HPRN PRN PO 04/19/25 19:15 04/20/25 02:36 50 MG Examination Gen - no pallor, no scleral icterus Skin - Patients skin is warm and dry. HEENT - normocephalic, atraumatic, dry mucous membranes. Neck - supple, no lymphadenopathy Pulmonary - B/L clear breath sounds cardiovascular - regular S1,S2 heard GI - soft abdomen with mild tenderness to palpation in the epigastrium. Bowel sounds normoactive. Neurological - Patient is alert and oriented x3. Anxiety, tremors on extension of arms, sweating laboratory and microbiology Laboratory Tests 04/20/25 09:59 04/19/25 07:06 Test 04/19/25 07:06 Range/Units Serum Glucose 113 H 74-106 mg/dL Problem List/Assessment/Plan Problem List/Assessment/Plan Alcohol withdrawal Acute gastritis likely due to alcohol Intractable nausea vomiting likely due to alcohol withdrawal Transaminitis likely due to alcohol Plan - IV Ativan for alcohol withdrawal - IV fluids - Protonix daily - Carafate b.i.d. - soft diet, NPO after midnight - monitor H&H and keep hemoglobin above 7 - EGD tomorrow Plan discussed with Dr. Anaya Plan discussed with: Patient, Other (ZEESHAN Godinez) My Orders My Orders Orders - MCKAY LEGGETT Procedure Category Date Status Time Obtain Consent For: ORDERS 04/20/25 Transmitted 16:13 Obtain Consent For CHARLES 04/21/25 In Process Anesthesia 16:13 Npo After Midnight CHARLES 04/20/25 In Process 16:13 MCKAY LEGGETT RESIDENT Apr 20, 2025 17:23
[2025-04-20] MEDS: FOLIC ACID 1 MG, MULTIPLE VITAMIN 10 ML, MAGNESIUM SULF SDV 50% 8 MEQ, THIAMINE INJ 100... INJ SCH (18:09)
[2025-04-21] VITALS (10 sets, daily range): BP systolic 126–140; BP diastolic 83–101; PULSE 54–90; RESP 16–20; TEMP 96.9–98.4; O2SAT 99–100
[2025-04-21 06:32] LABS: Hematocrit 38.1 % (41.0-53.0); Hemoglobin 13.3 g/dL (13.5-17.5); Mean Corpuscular Hemoglobin 30.6 pg (28.0-32.0); Mean Corpuscular Volume 88.0 fL (80.0-100.0); Nucleated Red Blood Cells % 0.2 %
[2025-04-21 06:53] LABS: Alkaline Phosphatase 90 U/L (46-116); Anion Gap 11 (5-15); Carbon Dioxide 27 mmol/L (20-31); Glucose 89 mg/dL (74-106); Total Protein 6.5 g/dL (5.7-8.2)
[2025-04-21 06:54] LABS: Albumin 4.1 g/dL (3.2-4.8); Bilirubin, Total 0.4 mg/dL (0.2-1.0)
[2025-04-21 06:56] LABS: Alanine Aminotransferase 43 U/L (7-40); BUN/Creatinine Ratio 6.2 (10.0-20.0); Blood Urea Nitrogen < 5 mg/dL (9-23); Calcium 8.4 mg/dL (8.7-10.4); Chloride 108 mmol/L (98-107); Potassium 3.2 mmol/L (3.5-5.1); Sodium 146 mmol/L (136-145)
--- NOTE | 2025-04-21 09:59 | ECG ---
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
[2025-04-21] MEDS ORDERED: PROPOFOL 10 MG/ML 20 ML IV ONE (13:57)
[2025-04-21] MEDS ORDERED: LIDOCAINE 2% (LOCAL ANESTH.) PF 5ml SDV ONE (13:57)
--- NOTE | 2025-04-21 14:13 | DVHOP2 ---
Operative Report DATE OF OPERATION: 04/21/25 PROCEDURE: Upper Endoscopy with biopsy. PREOPERATIVE INDICATION: The patient is a 39 -year-old male undergoing endoscopy for nausea and vomiting and upper GI bleed POSTOPERATIVE DIAGNOSES: 1. 1-2 cm sliding-type hiatal hernia with with short-segment extension of columnar epithelium into the distal esophagus from which biopsies were obtained 2. Mild linear antral gastritis otherwise normal examination up to the 2nd and 3rd part of the duodenum PROCEDURE PERFORMED BY: Alondra Anaya GI NURSE: Demetra SCOPE: Olympus videoendoscope. ASA CLASS: 2. PREOPERATIVE MEDICATIONS: Mac sedation, Titi Archibald PROCEDURE IN DETAIL: After obtaining an informed consent, the patient was placed on left lateral decubitus position. The patient was then sedated with the above medications. A bite block was placed between his teeth. The endoscope was then passed through the oropharynx, into the esophagus, and through the stomach and pylorus up to the second and third part of the duodenum. The endoscope was t hen withdrawn. The 2nd and 3rd part of the duodenum and the duodenal bulb were normal. Duodenal biopsies were obtained The pre-pyloric area antrum and body showed mild gastritis. Gastric biopsies were obtained On retroflexion the fundus cardia and angularis were normal.The endoscope was then withdrawn into distal esophagus Patient had a 1-2 cm sliding-type hiatal hernia with short-segment irregular extension of columnar epithelium into the distal esophagus from which biopsies were obtained The remaining distal and proximal esophagus and oropharynx were unremarkable. There was no fresh or old blood in the upper GI tract The patient tolerated the procedure well without difficulty. COMPLICATIONS : None SPECIMENS: Duodenal biopsies Gastric biopsies GE junction biopsies DISPOSITION: Transfer back to the floor Stable PLAN: 1. Await for biopsy result 2. Will place pt on Protonix 40 mg bid p.o. 3. Carafate 1 g p.o. twice a day 4. Resume GI soft diet advance as tolerated 5. Outpatient follow up with GI Services to review results ALONDRA ANAYA MD Apr 21, 2025 14:13
--- NOTE | 2025-04-21 14:52 | DVHPN2 ---
Subjective Patient's visual hallucinations has been improved, patient is currently scheduled for EGD today. Changes from previous H/P or p: No Changes Eyes: No Pain, No Vision change, No Conjunctivae inflammation, No Eyelid inflammation, No Other, No Redness ENT: No Ear pain, No Ear discharge, No Nose pain, No Nose discharge, No Nose congestion, No Mouth pain, No Mouth swelling, No Throat pain, No Throat swelling, No Other Cardiovascular: No Chest Pain, No Palpitations, No Orthopnea, No Paroxysmal Noc. Dyspnea, No Edema, No Lt Headedness, No Other Respiratory: No Cough, No Dry, No Shortness of breath, No SOB with excertion, No Wheezing, No Hemoptysis, No Pleuritic Pain, No Sputum, No Other Gastrointestinal: Nausea, Vomiting, Abdominal Pain; No Diarrhea, No Constipation, No Melena, No Hematochezia; Other (Hematemesis) Genitourinary: No Dysuria, No Frequency, No Incontinence, No Hematuria, No Retention, No Other Musculoskeletal: No other, No neck pain, No shoulder pain, No arm pain, No back pain, No hand pain, No leg pain, No foot pain Skin: No Rash, No Lesions, No Jaundice, No Bruising, No Other Objective Vitals Vital Signs Date Time Temp Pulse Resp B/P (MAP) Pulse Ox O2 Delivery O2 Flow Rate FiO2 04/21/25 14:22 65 15 122/81 (95) 99 04/21/25 14:07 Room Air 0 04/21/25 14:07 99 04/21/25 14:07 98.1 98.1 Intake/Output Intake and Output 04/21/25 07:00 Intake Total 3412 ml Output Total 1800 ml Balance 1612 ml Intake Oral 2300 ml IV Total 1112 ml Output Urine Total 1800 ml # Voids 4 # Bowel Movements 2 Exam HEENT pupils are reactive Neck is supple CV is S1-S2 regular rate and rhythm Respiratory diminished breath sounds bases GI positive bowel sounds soft nondistended mildly tender in the epigastric region no guarding no rigidity Extremities no edema 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 Medications Current Medications Medications Dose Ordered Sig/Shona Route Start Time Stop Time Status Last Admin Dose Admin Pantoprazole Sodium 40 mg DAILY IV 04/18/25 10:00 04/21/25 09:32 40 MG Metoprolol Tartrate 25 mg BID PO 04/18/25 10:00 04/20/25 22:03 25 MG Clonidine HCl 0.1 mg Q4HP PRN PO 04/18/25 00:15 Ibuprofen 600 mg Q6HP PRN PO 04/18/25 00:15 Acetaminophen/ Hydrocodone Bitart 1 tab Q4HP PRN PO 04/18/25 00:15 04/20/25 23:16 1 TAB Ondansetron HCl 4 mg Q4HP PRN IV 04/18/25 00:15 04/19/25 09:49 4 MG Docusate Sodium 100 mg BIDPRN PRN PO 04/18/25 00:15 Nitroglycerin 0.4 mg Q5MINP PRN SL 04/18/25 02:45 Hydromorphone HCl 0.5 mg Q6HPRN PRN IV 04/19/25 10:00 Morphine Sulfate 2 mg Q30MP PRN IV 04/19/25 10:45 Sodium Chloride 1,000 ml @ 100 mls/hr Q10H IV 04/19/25 11:45 04/21/25 11:38 100 MLS/HR Sucralfate 1 gm BID@0600,2200 PO 04/19/25 22:00 04/21/25 06:30 1 GM Folic Acid 1 mg/ Multivitamins 10 ml/Magnesium Sulfate 8 meq/ Thiamine HCl 100 mg/Dextrose 1,013.2 ml @ 125.001 mls/hr DAILY@1800 INJ 04/20/25 18:00 04/20/25 18:09 125.001 MLS/HR Lorazepam 1 mg Q2H PRN IV 04/19/25 15:00 04/20/25 23:07 1 MG Loperamide HCl 2 mg TIDPRN PRN PO 04/19/25 15:00 04/20/25 06:31 2 MG Chlordiazepoxide HCl 50 mg Q6HPRN PRN PO 04/19/25 19:15 04/20/25 20:19 50 MG Potassium Chloride 100 ml @ 50 mls/hr Q2H IV 04/21/25 13:00 04/21/25 18:59 Laboratory Results Laboratory Tests 04/21/25 05:00 Chemistry Test 04/21/25 05:00 Albumin 4.1 g/dL (3.2-4.8) Calcium Level 8.4 mg/dL (8.7-10.4) L Total Protein 6.5 g/dL (5.7-8.2) LFT Test 04/21/25 05:00 Alanine Aminotransferase (ALT) 43 U/L (7-40) H Alkaline Phosphatase 90 U/L (46-116) Aspartate Amino Transferase (AST) 35 U/L (13-40) Total Bilirubin 0.4 mg/dL (0.2-1.0) Urinalysis Test 04/17/25 12:20 Urine Color Light-yellow (Yellow) Urine Clarity Clear (Clear) Urine pH 6.0 (5.0-9.0) Urine Specific [place] 1.010 (1.001-1.035) Urine Protein Trace (Negative) H Urine Ketones 1+ (Negative) H Urine Blood Negative /uL (Negative) Urine Nitrite Negative (Negative) Urine Bilirubin Negative (Negative) Urine Urobilinogen Normal mg/dL (Negative) Urine Leukocyte Esterase Negative /uL (Negative) Urine RBC 3 /hpf (0 - 3) Urine Microscopic WBC 5 /HPF (0-3) H Urine Squamous Epithelial Cells Few /hpf (<5) Urine Bacteria Few /hpf (None Seen) H Urine Mucus Few (None Seen) Urine Sperm Present /hpf (None Seen) Urine Glucose Normal mg/dL (Normal) Assessment/Plan Assessment/Plan 39-year-old male with a known history of anxiety disorder, chronic alcoholism who initially admitted to the hospital with the abdominal pain epigastric pain nausea and vomiting and hematemesis found to have 1. Nausea and vomiting with a hematemesis rule out upper GI bleed 3. Alcoholic gastritis 3. Transaminitis 4. Chronic alcoholism 5. Anxiety disorder 6. Alcohol withdrawal syndrome/delirium tremens -Protonix IV, IV fluids, banana bag, watch for any alcohol withdrawal syndrome , delirium tremens -EGD scheduled today. Plan discussed with: Patient My Orders Orders - JANI LUX MD Procedure Category Date Status Time Initiate Vte CHARLES 04/21/25 In Process Prophylaxis 08:10 Potassium Chl PHA 04/21/25 In Process 20meq/100ml 13:00 Date of Service: Apr 21, 2025 Billing Provider: JANI LUX MD Common Visit Codes: [id number] INP/OBS CARE(HIGH) JANI LUX MD Apr 21, 2025 14:52
[2025-04-21] MEDS: POTASSIUM CHL 20MEQ/100ML 100 ML IV SCH (14:56)
[2025-04-21] MEDS: HYDROmorphone HCL 2 MG/ML VL/or syr IV PRN (20:58)
[2025-04-22 01:00] VITALS: BP 119/91; PULSE 65; RESP 18; TEMP 97.9; O2SAT 99
[2025-04-22 05:00] VITALS: BP 117/75; PULSE 52; RESP 18; TEMP 97.5; O2SAT 100
[2025-04-22 07:32] VITALS: PULSE 55
[2025-04-22 08:54] VITALS: BP 121/88; PULSE 58; RESP 16; TEMP 98.1; O2SAT 99
[2025-04-22 11:22] LABS: Chloride 107 mmol/L (98-107); Potassium 4.2 mmol/L (3.5-5.1); Sodium 145 mmol/L (136-145)
[2025-04-22 11:23] LABS: Anion Gap 10 (5-15); Calcium 9.1 mg/dL (8.7-10.4); Carbon Dioxide 28 mmol/L (20-31)
[2025-04-22 11:30] LABS: BUN/Creatinine Ratio 6.0 (10.0-20.0); Blood Urea Nitrogen < 5 mg/dL (9-23); Glucose 111 mg/dL (74-106)
[2025-04-22 12:39] VITALS: BP 131/82; PULSE 69; RESP 16; TEMP 97.8; O2SAT 99
--- NOTE | 2025-04-22 12:51 | DVHPN2 ---
Progress Note Date Seen: Apr 22, 2025 Resident Creating Document: JHOfeJMCKAY Abreu RESIDENT Medical Necessity Reason Pt with a Central, PICC or Fol: No Subjective Review of Systems Patient denies nausea, vomiting Abdominal pain has improved Tolerating soft diet well Objective vital signs Vital Sign Date Time Temp Pulse Resp B/P (MAP) Pulse Ox O2 Delivery O2 Flow Rate FiO2 04/22/25 12:39 97.8 69 16 131/82 (98) 99 97.8 04/22/25 08:00 Room Air* 0 21 Total Intake and Output 04/21/25 04/21/25 04/22/25 15:00 23:00 07:00 Intake Total 100 ml 2600 ml 550 ml Output Total 550 ml 300 ml 800 ml Balance -450 ml 2300 ml -250 ml medications Current Medications Medications Dose Ordered Sig/Shona Route Start Time Stop Time Status Last Admin Dose Admin Pantoprazole Sodium 40 mg DAILY IV 04/18/25 10:00 04/22/25 10:03 40 MG Metoprolol Tartrate 25 mg BID PO 04/18/25 10:00 04/21/25 22:01 25 MG Clonidine HCl 0.1 mg Q4HP PRN PO 04/18/25 00:15 Ibuprofen 600 mg Q6HP PRN PO 04/18/25 00:15 Acetaminophen/ Hydrocodone Bitart 1 tab Q4HP PRN PO 04/18/25 00:15 04/22/25 08:22 1 TAB Ondansetron HCl 4 mg Q4HP PRN IV 04/18/25 00:15 04/19/25 09:49 4 MG Docusate Sodium 100 mg BIDPRN PRN PO 04/18/25 00:15 Nitroglycerin 0.4 mg Q5MINP PRN SL 04/18/25 02:45 Hydromorphone HCl 0.5 mg Q6HPRN PRN IV 04/19/25 10:00 04/21/25 20:58 0.5 MG Morphine Sulfate 2 mg Q30MP PRN IV 04/19/25 10:45 Sodium Chloride 1,000 ml @ 100 mls/hr Q10H IV 04/19/25 11:45 04/21/25 23:45 100 MLS/HR Sucralfate 1 gm BID@0600,2200 PO 04/19/25 22:00 04/22/25 06:22 1 GM Folic Acid 1 mg/ Multivitamins 10 ml/Magnesium Sulfate 8 meq/ Thiamine HCl 100 mg/Dextrose 1,013.2 ml @ 125.001 mls/hr DAILY@1800 INJ 04/20/25 18:00 04/21/25 21:03 125.001 MLS/HR Lorazepam 1 mg Q2H PRN IV 04/19/25 15:00 04/20/25 23:07 1 MG Loperamide HCl 2 mg TIDPRN PRN PO 04/19/25 15:00 04/20/25 06:31 2 MG Chlordiazepoxide HCl 50 mg Q6HPRN PRN PO 04/19/25 19:15 04/21/25 22:37 50 MG Examination Gen - no pallor, no scleral icterus Skin - Patients skin is warm and dry. HEENT - normocephalic, atraumatic, dry mucous membranes. Neck - supple, no lymphadenopathy Pulmonary - B/L clear breath sounds cardiovascular - regular S1,S2 heard GI - soft abdomen with mild tenderness to palpation in the epigastrium. Bowel sounds normoactive. Neurological - Patient is alert and oriented x3. Anxiety, tremors on extension of arms, sweating laboratory and microbiology Laboratory Tests 04/22/25 10:52 04/21/25 05:00 Test 04/22/25 10:52 Range/Units Serum Glucose 111 H 74-106 mg/dL Problem List/Assessment/Plan Problem List/Assessment/Plan Alcohol withdrawal Acute gastritis likely due to alcohol Intractable nausea vomiting likely due to alcohol withdrawal Transaminitis likely due to alcohol 1-2 cm sliding hiatal hernia Plan - patient tolerating diet well and can be discharged home on Protonix daily and Carafate b.i.d. - follow up in the GI outpatient clinic in 2-4 weeks for biopsy results - strictly avoid alcohol, smoking, NSAIDs, spicy foods, caffeine - status post EGD on 04/21/[address] Anaya Plan discussed with: Patient, Other (ZEESHAN Kelly) Dietary Evaluation Review Comments: Regular diet with MVI, folic acid, thiamine supplementation [facility] Expected Outcomes/Goals: off alcohol MCKAY LEGGETT RESIDENT Apr 22, 2025 12:51
[2025-04-22] MEDS ORDERED: PANT40TA2 PO (12:52)
[2025-04-22] MEDS ORDERED: SUCR1SUS5 PO (12:52)
[2025-04-22] MEDS ORDERED: HYDR-4902 PO (13:06)
--- NOTE | 2025-04-22 13:10 | DVHDS2 ---
Discharge Summary Date of Admission Apr 18, 2025 at 02:36 Date of Discharge: Apr 22, 2025 Labs/Diagnostic Data: Laboratory Results Test 04/22/25 10:52 04/21/25 05:00 04/19/25 07:06 04/17/25 18:17 Sodium Level 145 mmol/L (136-145) Potassium Level 4.2 mmol/L (3.5-5.1) Chloride Level 107 mmol/L (98-107) Carbon Dioxide Level 28 mmol/L (20-31) Anion Gap 10 (5-15) Blood Urea Nitrogen < 5 mg/dL (9-23) Creatinine 0.84 mg/dL (0.700-1.30) Glomerular Filtration Rate Calc 114 mL/min (>90) BUN/Creatinine Ratio 6.0 (10.0-20.0) Serum Glucose 111 mg/dL (74-106) Calcium Level 9.1 mg/dL (8.7-10.4) White Blood Count 5.6 10^3/uL (4.4-10.8) Red Blood Count 4.33 10^6/uL (4.5-5.90) Hemoglobin 13.3 g/dL (13.5-17.5) Hematocrit 38.1 % (41.0-53.0) Mean Corpuscular Volume 88.0 fL (80.0-100.0) Mean Corpuscular Hemoglobin 30.6 pg (28.0-32.0) Mean Corpuscular Hemoglobin Concent 34.8 g/dL (32.0-36.0) Red Cell Distribution Width 13.4 % (11.8-14.3) Platelet Count 181 10^3/uL (140-450) Mean Platelet Volume 7.2 fL (6.9-10.8) Neutrophils (%) (Auto) 64.5 % (37.0-80.0) Lymphocytes (%) (Auto) 25.0 % (10.0-50.0) Monocytes (%) (Auto) 7.5 % (0.0-12.0) Eosinophils (%) (Auto) 2.4 % (0.0-7.0) Basophils (%) (Auto) 0.6 % (0.0-2.0) Neutrophils # (Auto) 3.6 10 ^3/uL (1.6-8.6) Lymphocytes # (Auto) 1.4 10 ^3/uL (0.4-5.4) Monocytes # (Auto) 0.4 10 ^3/uL (0-1.3) Eosinophils # (Auto) 0.1 10 ^3/uL (0-0.8) Basophils # (Auto) 0 10 ^3/uL (0-0.2) Nucleated Red Blood Cells 0.2 % Total Bilirubin 0.4 mg/dL (0.2-1.0) Aspartate Amino Transferase (AST) 35 U/L (13-40) Alanine Aminotransferase (ALT) 43 U/L (7-40) Alkaline Phosphatase 90 U/L (46-116) Total Protein 6.5 g/dL (5.7-8.2) Albumin 4.1 g/dL (3.2-4.8) Troponin I High Sensitivity 5 ng/L (</=54) Lactic Acid Level 1.9 mmol/L (0.4-2.0) Lipase 59 U/L (12-53) Test 04/17/25 12:20 Urine Color Light-yellow (Yellow) Urine Clarity Clear (Clear) Urine pH 6.0 (5.0-9.0) Urine Specific [place] 1.010 (1.001-1.035) Urine Protein Trace (Negative) Urine Ketones 1+ (Negative) Urine Blood Negative /uL (Negative) Urine Nitrite Negative (Negative) Urine Bilirubin Negative (Negative) Urine Urobilinogen Normal mg/dL (Negative) Urine Leukocyte Esterase Negative /uL (Negative) Urine RBC 3 /hpf (0 - 3) Urine Microscopic WBC 5 /HPF (0-3) Urine Squamous Epithelial Cells Few /hpf (<5) Urine Bacteria Few /hpf (None Seen) Urine Mucus Few (None Seen) Urine Sperm Present /hpf (None Seen) Urine Glucose Normal mg/dL (Normal) Other Laboratory Tests 04/22/25 10:52 04/21/25 05:00 Brief Hx & Hospital Course: 39-year-old male with past medical history of EtOH abuse, anxiety, and hypertension who presented to [facility] ED with complaint of epigastric abdominal pain. Patient reports he has been experiencing abdominal pain associated with chest pressure, intractable nausea, vomiting blood, generalized weakness, getting worse today that prompted this visit. Patient states that he has been drinking alcohol binge drinking for the last 3 weeks. He states having endoscopy on April 20, 2024 at [facility] Patient was seen and evaluated in the ED, laboratory data shows WBC 6.8, platelets 280, sodium 138, potassium 3.8, BUN five, creatinine 0.92, GFR 109, glucose 112, calcium 10.0, lipase 59, AST 59, ALT 58, alkaline phos 146, troponin 6, total bilirubin 0.5, abdomen/pelvis CT showed no acute abdominal or pelvic findings. Please see medication orders section in the computer. On my assessment, patient denied chest pain, no headache, dizziness, diaphoresis, no abdominal pain, nausea or vomiting at this moment, diarrhea, fever, no chills. Patient was admitted for further evaluation and medical management Had gastritis on EGD alcohol withdrawal resolved Condition at Discharge: Good Final Diagnosis/Problems List gastritis alcohol withdrawal Discharge Disposition: Home Discharge Instruct/Medications Diet: Regular Activity: No Restrictions, As Tolerated Follow Up/Referral: GI in 7 days Medications: pantoprazole, norco, sucralfate Scheduled Acetaminophen W/ Codeine (Tylenol W/Cod #3), 1 TAB PO QIDP Amlodipine Besylate (Amlodipine Besylate), 5 MG PO DAILY, (Reported) Azithromycin (Zithromax Z-Jorge), 250 MG PO DAILY Azithromycin (Zithromax Z-Jorge), 250 MG PO DAILY Clonidine Hydrochloride (Clonidine Hcl), 0.1 MG PO TID, (Reported) Doxycycline (Monohydrate) (Doxycycline), 100 MG PO BID Enalapril Maleate (Enalapril Maleate), 2.5 MG PO DAILY, (Reported) Gabapentin (Gabapentin), 300 MG PO TID, (Reported) Lidocaine HCl (Mouth-Throat) (Lidocaine HCl Viscous), 10 ML MT TID Pantoprazole Sodium (Pantoprazole Sodium), 40 MG PO DAILY, (Reported) Pantoprazole Sodium Sesquihydr (Protonix), 40 MG PO QAM Quetiapine Fumerate (Quetiapine Fumarate), 300 MG PO HS, (Reported) Sucralfate (Carafate), 10 ML PO BID Scheduled PRN Acetaminophen (Tylenol), 325 MG PO Q4HPRN PRN Albuterol Sulfate (Ventolin Mdi), 90 MCG IN TIDPRN PRN Benzocaine-Menthol (Mouth-Thro (Cepacol Sore Throat Extra 15-3.6 mg), 1 DEVON MT Q2HPRN PRN Hydrocodone-Acetaminophen (Hydrocodone Bitartrate/AC 5-325 mg), 1 TAB PO Q4HP PRN Discharge Statement: "Patient was advised to return to the ER or call 911 if any headaches, dizziness, shortness of breath, chest pain, abdominal pain, bleeding, fevers, or worsening of medical condition. Patient was counseled about treatment plan, medications, possible side effects, patientverbalized understanding. All questions were answered to the best of my ability. This discharge took greater then 30 minutes in planning, reviewing documentation, counseling the patient, and discussing with other team members." ASSESSMENT ASSESSMENT Assessment gastritis alcohol withdrawal Date of Service: Apr 22, 2025 Billing Provider: BARRY MAXWELL MD Common Visit Codes: 51826-KOM/OBS DISCH DAY >30min BARRY MAXWELL MD Apr 22, 2025 13:10
== END 2025-04-22 16:45 | disposition home or self-care (01) | DRG 241 ==
LOC: ER 17:12 → OVERFLOW 04-18 02:36 → TELE-WESTW 04-18 02:38
PROVIDERS: ADMIT Hospitalist; ATTEND Hospitalist
PROC: 0DB68ZX Excision of Stomach, Via Natural or Artificial Opening Endoscopic, Diagnostic (ICD-10-PCS; 2025-04-21)
PROC: 0DB48ZX Excision of Esophagogastric Junction, Via Natural or Artificial Opening Endoscopic, Diagnostic (ICD-10-PCS; 2025-04-21)
PROC: 0DB98ZX Excision of Duodenum, Via Natural or Artificial Opening Endoscopic, Diagnostic (ICD-10-PCS; principal; 2025-04-21 13:57)
DX: K29.20 Alcoholic gastritis without bleeding (principal); F10.231 Alcohol dependence with withdrawal delirium; K92.0 Hematemesis; N39.0 Urinary tract infection, site not specified; I10 Essential (primary) hypertension; F41.9 Anxiety disorder, unspecified; K44.9 Diaphragmatic hernia without obstruction or gangrene; R74.8 Abnormal levels of other serum enzymes; R74.01 Elevation of levels of liver transaminase levels; Z82.49 Family history of ischemic heart disease and other diseases of the circulatory system; Y90.9 Presence of alcohol in blood, level not specified
CPT/HCPCS: 36415; 43239; 74176; 80048; 80053; 81001; 83605; 83690; 84132; 84484; 85025; 93005; 96361; 96374; 96375; G0378; J2003; J2405; J2470; J2704; J3480